=== PATIENT | female | born 1945 | race Caucasian/White ===

== ENCOUNTER 2017-05-07 20:58 | Inpatient (IN) | payer MEDICARE, MEDICAID ==
[~2017-05-07] VITALS: Ht 165.1 cm; Wt 79.8 kg
[~2017-05-07 20:58] MED LIST: ACET-2154 PO; APIX5TAB PO; ATEN25TA PO; BLOO-360 IN; CALC-903 PO; CARB-110 PO; CHOL400T58 PO; DOCU100T2 PO; GEMF600T3 PO; GLUC1VIA4 IJ; GLYB2.5T4 PO; LISI-603 PO; MAG30ORA PO; MAGN400O6 PO; OMEP20CA10 PO; SITA100T PO; VALS80TA2 PO
--- NOTE | 2017-05-07 21:02 | NUR ---
PATIENT BROUGHT IN BY PRIVATE AMBULANCE FROM [facility] ON 5150 HOLD FOR GD, PT WAS TAKING THE COVERS OFF OF THE ELECTRICAL OUTLETS, ARGUING WITH STAFF AND REFUSING TO TAKE MEDICATIONS. PT IS ALERT, ORIETNED X 2, NO RESP DISTRESS NOTED OR REPORTED UPON ASSESSMENT, SKIN IS INTACT, PT IS AMBULATORY, CONTINENT OF BOWEL AND BLADDER... MD AT BEDSIDE...
[2017-05-07 21:34] LABS: BASOPHILS # (AUTO) 0.1 K/uL (0.0-8.0); BASOPHILS % (AUTO) 0.9 % (0.0-2.0); EOSINOPHILS # (AUTO) 0.2 K/uL (0.0-0.7); EOSINOPHILS % (AUTO) 2.7 % (0.0-7.0); HEMATOCRIT 41.2 % (37-47); HEMOGLOBIN 13.5 G/DL (12.0-16.0); LYMPHOCYTES # (AUTO) 2.1 K/UL (0.8-4.8); LYMPHOCYTES % (AUTO) 24.2 % (20.5-51.5); MEAN CORPUSCULAR HEMOGLOBIN 28.2 UUG (27.0-31.0); MEAN CORPUSCULAR HGB CONC 33 g/dL (32.0-37.0); MEAN CORPUSCULAR VOLUME 86.1 FL (81.0-99.0); MONOCYTES # (AUTO) 0.8 K/UL (0.1-1.30); MONOCYTES % (AUTO) 9.3 % (0.0-11.0); NEUTROPHILS # (AUTO) 5.6 K/UL (1.8-8.9); NEUTROPHILS % (AUTO) 62.9 % (38.5-71.5); PLATELET COUNT (AUTO) 196 K/UL (150-450); RED BLOOD CELL COUNT(AUTO) 4.79 MIL/UL (4.2-5.4); WHITE BLOOD COUNT (AUTO) 8.8 K/UL (4.0-11.2)
[2017-05-07 21:45] LABS: ALANINE AMINOTRANSFERASE 11 U/L (14-59); ALKALINE PHOSPHATASE 90 U/L (50-136); ASPARTATE AMINOTRANSFERASE 18 U/L (15-37); BILIRUBIN,DIRECT 0.1 mg/dL (0.0-0.2); BILIRUBIN,TOTAL 0.4 mg/dL (0.2-1.0); CARBON DIOXIDE 27 mmol/L (21-32); CHLORIDE 106 mmol/L (98-107); CREATININE 0.9 mg/dL (0.6-1.3); GLUCOSE 131 mg/dL (74-106); POTASSIUM 3.9 mmol/L (3.5-5.1); TOTAL PROTEIN, SERUM 7.4 g/dL (6.4-8.2); UREA NITROGEN, BLOOD 20 mg/dL (7-18)
[2017-05-07 21:53] LABS: THYROID STIMULATING HORMONE 2.666 mIU/mL (0.358-3.740)
[2017-05-07] MEDS ORDERED: QUET50TA PO (21:55)
[2017-05-07] MEDS ORDERED: PANT40TA4 PO (21:55)
[2017-05-07] MEDS ORDERED: FLUO20CA36 PO (21:55)
[2017-05-07] MEDS ORDERED: FLUV25TA PO (21:55)
[2017-05-07] MEDS ORDERED: LORA1TAB PO (21:55)
[2017-05-07] MEDS ORDERED: RIVA1.5C7 PO (21:55)
[2017-05-07 21:59] LABS: ETHANOL < 3 MG/DL (0-0)
[2017-05-07 22:54] LABS: *BILIRUBIN,URIN NEGATIVE (NEGATIVE); *BLOOD, URINE Trace-intact (NEGATIVE); *CLARITY,URINE CLEAR (CLEAR); *COLOR,URINE YELLOW (YELLOW); *KETONES,URINE NEGATIVE (NEGATIVE); *PROTEIN,URINE NEGATIVE (NEGATIVE); *UROBILINOGEN,URINE 0.2 E.U./dl (NORMAL); LEUKOCYTE ESTERASE ,URINE 2+ (NEGATIVE); NITRITE, URINE NEGATIVE (NEGATIVE); PH,URINE 5.5 (5.0-8.0); UGLUCOSE NEGATIVE (NEGATIVE)
[2017-05-07 23:00] LABS: BACTERIA,URINE FEW /HPF (NONE SEEN); RBC,URINE 0-3 /HPF (0-3); SQUAMOUS EPITHELIAL CELL,UR FEW /HPF (NONE SEEN)
[2017-05-07 23:10] LABS: *AMPHETAMINE, URINE NEGATIVE (NEGATIVE); *BARBITURATE, URINE NEGATIVE (NEGATIVE); *CANNABINOID, URINE NEGATIVE (NEGATIVE); *COCCAINE, URINE NEGATIVE (NEGATIVE); *PHENCYCLIDINE SCREEN,URINE NEGATIVE (NEGATIVE)
[2017-05-07] MEDS ORDERED: CEPHALEXIN MONOHYDRATE 250 MG CAPSULE PO ONE (23:15)
[2017-05-07 23:27] LABS: *OPIATE, URINE NEGATIVE (NEGATIVE)
[2017-05-07] MEDS ORDERED: CEPHALEXIN MONOHYDRATE 250 MG CAPSULE ONE (23:27)
--- NOTE | 2017-05-08 00:30 | NUR ---
Pt. admitted to MHU , under care of Dr. Munoz/ dami, Belongs List completed, pt is alert, oriented x 2, no resp distress noted or reported upon transfer assessment... pt transferred via wheelchair
[2017-05-08] MEDS: LORAZEPAM 1 MG TABLET PO PRN ×2 (01:10→21:12)
[2017-05-08] MEDS ORDERED: TEMAZEPAM 7.5 MG CAPSULE PO PRN (01:15)
[2017-05-08] MEDS ORDERED: MAGNESIUM HYDROXIDE 30 ML LIQUID UDC PO PRN (01:15)
[2017-05-08] MEDS ORDERED: ACETAMINOPHEN 325 MG TABLET PO PRN ×2 (01:15→14:15)
[2017-05-08] MEDS ORDERED: MAG HYDROX/AL HYDROX/SIMETH 30 ML LIQUID UDC PO PRN (01:15)
[2017-05-08 01:19] VITALS: BP 120/82
[2017-05-08] MEDS ORDERED: LORAZEPAM 1 MG TABLET ONE (01:20)
--- NOTE | 2017-05-08 02:18 | NUR ---
GPS: Admitted to unit earlier a 71 yr.old female under the care of / in stable condition. Pt.is on a 72 hour hold for GD. Pt.attempted to remove electrical outlet covers,and has been agitated and screaming at her board and care. Pt.was anxious,hyperverbal during admission process. Belongings list completed. Skin assessment done by staff after some persuasion from staff. Safety emphasized. Re-directed and re-assured prn. Monitored closely.
[2017-05-08 07:30] VITALS: BP 130/72
[2017-05-08] MEDS: BLOOD SUGAR DIAGNOSTIC 1 EACH STRIP VI SCH ×3 (14:15→21:39)
[2017-05-08] MEDS ORDERED: DEXTROSE 50% 50 ML DISP.SYRIN IV PRN (14:15)
[2017-05-08 16:00] VITALS: BP 130/83
[2017-05-08] MEDS: LINAGLIPTIN 5 MG TABLET PO SCH (16:00)
[2017-05-08] MEDS: SULFAMETH/TRIMETH 800/160 MG TABLET PO SCH ×2 (16:09→21:12)
[2017-05-08] MEDS: PANTOPRAZOLE SODIUM 40 MG TABLET.DR PO SCH (16:10)
[2017-05-08] MEDS ORDERED: APIXABAN 5 MG TABLET PO ONE (17:00)
[2017-05-08] MEDS ORDERED: CARB1TAB21 PO (17:11)
[2017-05-08] MEDS: DOCUSATE SODIUM 100 MG CAPSULE PO SCH (17:35)
[2017-05-08] MEDS: glyBURIDE 2.5 MG TABLET PO SCH (17:36)
[2017-05-08] MEDS: CARBIDOPA/LEVODOPA 25-100MG TABLET PO SCH (17:36)
[2017-05-08] MEDS: INSULIN REGULAR, HUMAN 300 UNIT/3 ML VIAL SQ PRN (17:59)
[2017-05-08 20:17] VITALS: BP 116/77
[2017-05-08] MEDS: QUETIAPINE FUMARATE 25 MG TABLET PO SCH (21:00)
[2017-05-09] MEDS: BLOOD SUGAR DIAGNOSTIC 1 EACH STRIP VI SCH ×4 (07:13→21:03)
[2017-05-09] MEDS: PANTOPRAZOLE SODIUM 40 MG TABLET.DR PO SCH (07:21)
[2017-05-09] MEDS: glyBURIDE 2.5 MG TABLET PO SCH ×2 (07:21→17:14)
[2017-05-09 07:30] VITALS: BP 131/70
[2017-05-09] MEDS: RIVASTIGMINE TARTRATE 3 MG CAPSULE PO SCH ×2 (08:35→17:14)
[2017-05-09] MEDS: CARBIDOPA/LEVODOPA 25-100MG TABLET PO SCH ×3 (08:36→17:14)
[2017-05-09] MEDS: DOCUSATE SODIUM 100 MG CAPSULE PO SCH ×2 (08:36→17:14)
[2017-05-09] MEDS: SULFAMETH/TRIMETH 800/160 MG TABLET PO SCH ×2 (08:36→20:49)
[2017-05-09] MEDS: CALCIUM CARBONATE 600 MG TABLET PO SCH (08:36)
[2017-05-09] MEDS: CHOLECALCIFEROL 400 UNITS TABLET PO SCH (08:36)
[2017-05-09] MEDS: LINAGLIPTIN 5 MG TABLET PO SCH (08:41)
[2017-05-09] MEDS: APIXABAN 5 MG TABLET PO SCH ×2 (08:45→17:14)
[2017-05-09] MEDS: LISINOPRIL 20 MG TABLET PO SCH (09:00)
[2017-05-09] MEDS ORDERED: FLUOXETINE HCL 20 MG CAPSULE PO SCH (09:00)
[2017-05-09] MEDS: VALSARTAN 80 MG TABLET PO SCH (09:00)
[2017-05-09] MEDS ORDERED: Medication Not On Formulary EA (Sitagliptin Phosphate (Januvia) 100 MG) PO SCH (09:00)
[2017-05-09] MEDS: ATENOLOL 25 MG TABLET PO SCH (09:00)
--- NOTE | 2017-05-09 09:00 | NUR ---
GPS./RN- BLOOD PRESSURE MEDS HELD BASED ON FACILITY PARAMETERS, HOLD IF SBP BELOW 100 AND/OR DBP BELOW 60 AND/OR HR BELOW 60. PATIENT WITH LOW HEART RATE.
--- NOTE | 2017-05-09 09:17 | NUR ---
Initial discharge instructions: The patient resides at [facility] ([facility]) [[address] , [place] [address] ]. VAUGHN spoke with pt regarding potential discharge plan. SW attempted to call the patient's brother [Cristian Alves, ] about the discharge plan however his phone was busy. SW will attempt to call back at a later time. VAUGHN called [facility] and spoke with Phu in admissions who stated that they will be accepting the patient back upon DC. VAUGHN will speak to MD, patient, and family regarding most appropriate discharge plan. SW will form a safe and proper discharge plan.
[2017-05-09 16:00] VITALS: BP 137/81
[2017-05-09 20:57] VITALS: BP 134/82
[2017-05-10] MEDS: BLOOD SUGAR DIAGNOSTIC 1 EACH STRIP VI SCH ×4 (06:43→20:27)
[2017-05-10] MEDS: PANTOPRAZOLE SODIUM 40 MG TABLET.DR PO SCH (06:51)
[2017-05-10 07:30] VITALS: BP 127/83
[2017-05-10] MEDS: SULFAMETH/TRIMETH 800/160 MG TABLET PO SCH ×2 (08:36→20:21)
[2017-05-10] MEDS: DOCUSATE SODIUM 100 MG CAPSULE PO SCH ×2 (08:36→16:45)
[2017-05-10] MEDS: glyBURIDE 2.5 MG TABLET PO SCH ×2 (08:36→16:45)
[2017-05-10] MEDS: CARBIDOPA/LEVODOPA 25-100MG TABLET PO SCH ×3 (08:36→16:45)
[2017-05-10] MEDS: RIVASTIGMINE TARTRATE 3 MG CAPSULE PO SCH ×2 (08:36→16:45)
[2017-05-10] MEDS: CALCIUM CARBONATE 600 MG TABLET PO SCH (08:36)
[2017-05-10] MEDS: CHOLECALCIFEROL 400 UNITS TABLET PO SCH (08:36)
[2017-05-10] MEDS: LINAGLIPTIN 5 MG TABLET PO SCH (08:37)
[2017-05-10] MEDS: APIXABAN 5 MG TABLET PO SCH ×2 (08:37→16:45)
[2017-05-10] MEDS: QUETIAPINE FUMARATE 25 MG TABLET PO SCH ×3 (08:37→20:21)
[2017-05-10] MEDS: ATENOLOL 25 MG TABLET PO SCH (08:38)
[2017-05-10] MEDS: LISINOPRIL 20 MG TABLET PO SCH (08:38)
[2017-05-10] MEDS: VALSARTAN 80 MG TABLET PO SCH (08:38)
[2017-05-10 15:47] VITALS: BP 124/69
[2017-05-10] MEDS: FLUVOXAMINE MALEATE 25 MG TABLET PO SCH (19:32)
[2017-05-10] MEDS: INSULIN REGULAR, HUMAN 300 UNIT/3 ML VIAL SQ PRN (20:28)
[2017-05-10 20:54] VITALS: BP 114/72
[2017-05-11] MEDS: BLOOD SUGAR DIAGNOSTIC 1 EACH STRIP VI SCH ×4 (06:32→20:51)
[2017-05-11] MEDS: PANTOPRAZOLE SODIUM 40 MG TABLET.DR PO SCH (06:35)
[2017-05-11 07:30] VITALS: BP 123/77
[2017-05-11] MEDS: SULFAMETH/TRIMETH 800/160 MG TABLET PO SCH ×2 (08:33→20:12)
[2017-05-11] MEDS: CHOLECALCIFEROL 400 UNITS TABLET PO SCH (08:33)
[2017-05-11] MEDS: CALCIUM CARBONATE 600 MG TABLET PO SCH (08:33)
[2017-05-11] MEDS: QUETIAPINE FUMARATE 25 MG TABLET PO SCH ×3 (08:33→20:12)
[2017-05-11] MEDS: FLUVOXAMINE MALEATE 25 MG TABLET PO SCH ×3 (08:33→17:03)
[2017-05-11] MEDS: LINAGLIPTIN 5 MG TABLET PO SCH (08:33)
[2017-05-11] MEDS: DOCUSATE SODIUM 100 MG CAPSULE PO SCH ×2 (08:33→17:04)
[2017-05-11] MEDS: RIVASTIGMINE TARTRATE 3 MG CAPSULE PO SCH ×2 (08:33→17:04)
[2017-05-11] MEDS: CARBIDOPA/LEVODOPA 25-100MG TABLET PO SCH ×3 (08:34→17:04)
[2017-05-11] MEDS: APIXABAN 5 MG TABLET PO SCH ×2 (08:34→17:05)
[2017-05-11] MEDS: glyBURIDE 2.5 MG TABLET PO SCH ×2 (08:35→17:04)
[2017-05-11] MEDS: VALSARTAN 80 MG TABLET PO SCH (08:35)
[2017-05-11] MEDS: LISINOPRIL 20 MG TABLET PO SCH (08:35)
[2017-05-11] MEDS: ATENOLOL 25 MG TABLET PO SCH (08:35)
[2017-05-11 16:00] VITALS: BP 116/69
[2017-05-11 21:36] VITALS: BP 111/62
[2017-05-12] MEDS: PANTOPRAZOLE SODIUM 40 MG TABLET.DR PO SCH (06:34)
[2017-05-12] MEDS: BLOOD SUGAR DIAGNOSTIC 1 EACH STRIP VI SCH ×3 (06:35→16:19)
[2017-05-12 07:30] VITALS: BP 137/73
[2017-05-12] MEDS: CALCIUM CARBONATE 600 MG TABLET PO SCH (08:35)
[2017-05-12] MEDS: RIVASTIGMINE TARTRATE 3 MG CAPSULE PO SCH ×2 (08:35→16:18)
[2017-05-12] MEDS: CHOLECALCIFEROL 400 UNITS TABLET PO SCH (08:35)
[2017-05-12] MEDS: SULFAMETH/TRIMETH 800/160 MG TABLET PO SCH ×2 (08:35→21:42)
[2017-05-12] MEDS: CARBIDOPA/LEVODOPA 25-100MG TABLET PO SCH ×3 (08:35→16:18)
[2017-05-12] MEDS: FLUVOXAMINE MALEATE 25 MG TABLET PO SCH ×3 (08:36→16:18)
[2017-05-12] MEDS: DOCUSATE SODIUM 100 MG CAPSULE PO SCH ×2 (08:36→16:18)
[2017-05-12] MEDS: APIXABAN 5 MG TABLET PO SCH ×2 (08:36→16:18)
[2017-05-12] MEDS: LINAGLIPTIN 5 MG TABLET PO SCH (08:36)
[2017-05-12] MEDS: QUETIAPINE FUMARATE 25 MG TABLET PO SCH ×3 (08:36→21:41)
[2017-05-12] MEDS: glyBURIDE 2.5 MG TABLET PO SCH ×2 (08:36→16:18)
[2017-05-12] MEDS: VALSARTAN 80 MG TABLET PO SCH (08:37)
[2017-05-12] MEDS: ATENOLOL 25 MG TABLET PO SCH (08:37)
[2017-05-12] MEDS: LISINOPRIL 20 MG TABLET PO SCH (08:37)
[2017-05-12] MEDS: LORAZEPAM 1 MG TABLET PO PRN (16:18)
--- NOTE | 2017-05-12 16:18 | NUR ---
GPS: Nursing Notes: Severe Agitation: Violent outburst without provocation, taking her roommate cloth, hoarding trash in her draws, aggressive behavior by scratching staff, kicking staff, poor anger management, psychotic behavior, believes that we are stealing from her, unable to be redirected, restless, setting limits, but continue to be aggressive by scratching and kicking staff, covering psychiatrist, Dr. Hussein pichardo, continue to monitor patient, continue with treatment plan.
[2017-05-12] MEDS ORDERED: LORAZEPAM 2 MG/1 ML VIAL IM ONE (16:30)
[2017-05-12] MEDS ORDERED: diphenhydrAMINE 50 MG/1 ML VIAL IM ONE (16:30)
[2017-05-12] MEDS ORDERED: HALOPERIDOL LACTATE 5 MG/1 ML VIAL IM ONE (16:30)
--- NOTE | 2017-05-12 16:48 | NUR ---
GPS: Nursing Notes: Chemical Restraint: Patient is restless, poor anger management, aggressive behavior, striking and kicking staff, violent outburst without provocation, psychotic behavior, taking her roommate cloth and wearing them, believes that we are trying to steal from her, believes is her cloth, shouting, screaming, unable to be redirected, per Dr. Savage, medicated with Haldol 2.5mg IM, Ativan 1mg IM, and Benadryl 25mg IM STAT, refusing V/S at this time, continue with treatment plan.
--- NOTE | 2017-05-12 17:20 | NUR ---
GPS: Nursing Notes: Reassessment of Chemical Restraint: Patient is quiet, calmed, isolative in her room, no interactions with peer or staff, poor eyes contact when talking to staff, B/P=108/62, P=64, R=18, medication IM STAT was effective, patient stopped striking out at staff, patient stopped hoarding trash, continue to monitor for safety, continue with treatment plan.
[2017-05-12 17:56] VITALS: BP 119/72
[2017-05-12 20:53] VITALS: BP 107/66
[2017-05-13] MEDS: BLOOD SUGAR DIAGNOSTIC 1 EACH STRIP VI SCH (06:31)
[2017-05-13] MEDS: PANTOPRAZOLE SODIUM 40 MG TABLET.DR PO SCH (06:31)
[2017-05-13] MEDS ORDERED: INSULIN REGULAR, HUMAN 300 UNIT/3 ML VIAL SQ PRN (07:30)
[2017-05-13] MEDS: CARBIDOPA/LEVODOPA 25-100MG TABLET PO SCH ×3 (08:33→16:45)
[2017-05-13] MEDS: APIXABAN 5 MG TABLET PO SCH ×2 (08:33→16:46)
[2017-05-13] MEDS: LINAGLIPTIN 5 MG TABLET PO SCH (08:33)
[2017-05-13] MEDS: glyBURIDE 2.5 MG TABLET PO SCH ×2 (08:33→16:45)
[2017-05-13] MEDS: FLUVOXAMINE MALEATE 25 MG TABLET PO SCH ×2 (08:33→12:36)
[2017-05-13] MEDS: QUETIAPINE FUMARATE 25 MG TABLET PO SCH ×2 (08:33→12:36)
[2017-05-13] MEDS: SULFAMETH/TRIMETH 800/160 MG TABLET PO SCH ×2 (08:33→20:08)
[2017-05-13] MEDS: DOCUSATE SODIUM 100 MG CAPSULE PO SCH ×2 (08:33→16:45)
[2017-05-13] MEDS: RIVASTIGMINE TARTRATE 3 MG CAPSULE PO SCH ×2 (08:33→16:45)
[2017-05-13] MEDS: CHOLECALCIFEROL 400 UNITS TABLET PO SCH (08:34)
[2017-05-13] MEDS: VALSARTAN 80 MG TABLET PO SCH (08:34)
[2017-05-13] MEDS: ATENOLOL 25 MG TABLET PO SCH (08:34)
[2017-05-13] MEDS: CALCIUM CARBONATE 600 MG TABLET PO SCH (08:34)
[2017-05-13] MEDS: LISINOPRIL 20 MG TABLET PO SCH (08:35)
[2017-05-13] MEDS ORDERED: QUETIAPINE FUMARATE 25 MG TABLET PO SCH (13:00)
[2017-05-13 15:29] VITALS: BP 105/62
[2017-05-13] MEDS: FLUVOXAMINE MALEATE 50 MG TABLET PO SCH (20:08)
[2017-05-13 20:13] VITALS: BP 105/70
[2017-05-14] MEDS: BLOOD SUGAR DIAGNOSTIC 1 EACH STRIP VI SCH (06:33)
[2017-05-14] MEDS: PANTOPRAZOLE SODIUM 40 MG TABLET.DR PO SCH (06:33)
[2017-05-14 07:30] VITALS: BP 119/74
[2017-05-14] MEDS: QUETIAPINE FUMARATE 25 MG TABLET PO SCH ×2 (08:45→12:55)
[2017-05-14] MEDS: FLUVOXAMINE MALEATE 25 MG TABLET PO SCH ×2 (08:45→12:55)
[2017-05-14] MEDS: DOCUSATE SODIUM 100 MG CAPSULE PO SCH ×2 (08:45→16:30)
[2017-05-14] MEDS: CALCIUM CARBONATE 600 MG TABLET PO SCH (08:45)
[2017-05-14] MEDS: RIVASTIGMINE TARTRATE 3 MG CAPSULE PO SCH ×2 (08:45→16:30)
[2017-05-14] MEDS: CHOLECALCIFEROL 400 UNITS TABLET PO SCH (08:45)
[2017-05-14] MEDS: ATENOLOL 25 MG TABLET PO SCH (08:46)
[2017-05-14] MEDS: glyBURIDE 2.5 MG TABLET PO SCH ×2 (08:46→16:30)
[2017-05-14] MEDS: LINAGLIPTIN 5 MG TABLET PO SCH (08:46)
[2017-05-14] MEDS: SULFAMETH/TRIMETH 800/160 MG TABLET PO SCH ×2 (08:46→20:13)
[2017-05-14] MEDS: APIXABAN 5 MG TABLET PO SCH ×2 (08:46→16:31)
[2017-05-14] MEDS: CARBIDOPA/LEVODOPA 25-100MG TABLET PO SCH ×3 (08:47→16:30)
[2017-05-14] MEDS: LISINOPRIL 20 MG TABLET PO SCH (08:47)
[2017-05-14] MEDS: VALSARTAN 80 MG TABLET PO SCH (08:47)
[2017-05-14 15:44] VITALS: BP 99/64
[2017-05-14 20:00] VITALS: BP 123/75
[2017-05-14] MEDS: FLUVOXAMINE MALEATE 50 MG TABLET PO SCH (20:13)
[2017-05-15] MEDS: LORAZEPAM 1 MG TABLET PO PRN (06:00)
[2017-05-15] MEDS: PANTOPRAZOLE SODIUM 40 MG TABLET.DR PO SCH (06:02)
[2017-05-15] MEDS: BLOOD SUGAR DIAGNOSTIC 1 EACH STRIP VI SCH (06:32)
[2017-05-15 07:30] VITALS: BP 152/97
[2017-05-15 08:08] LABS: BASOPHILS # (AUTO) 0.1 K/uL (0.0-8.0); BASOPHILS % (AUTO) 1.2 % (0.0-2.0); EOSINOPHILS # (AUTO) 0.1 K/uL (0.0-0.7); EOSINOPHILS % (AUTO) 0.7 % (0.0-7.0); HEMOGLOBIN 14.9 G/DL (12.0-16.0); LYMPHOCYTES # (AUTO) 1.3 K/UL (0.8-4.8); LYMPHOCYTES % (AUTO) 18.2 % (20.5-51.5); MEAN CORPUSCULAR HEMOGLOBIN 28.6 UUG (27.0-31.0); MEAN CORPUSCULAR HGB CONC 33 g/dL (32.0-37.0); MEAN CORPUSCULAR VOLUME 86.3 FL (81.0-99.0); MONOCYTES # (AUTO) 0.5 K/UL (0.1-1.30); MONOCYTES % (AUTO) 6.2 % (0.0-11.0); NEUTROPHILS # (AUTO) 5.4 K/UL (1.8-8.9); NEUTROPHILS % (AUTO) 73.7 % (38.5-71.5); PLATELET COUNT (AUTO) 211 K/UL (150-450); RED BLOOD CELL COUNT(AUTO) 5.22 MIL/UL (4.2-5.4); WHITE BLOOD COUNT (AUTO) 7.4 K/UL (4.0-11.2)
[2017-05-15 09:09] LABS: ALANINE AMINOTRANSFERASE 27 U/L (14-59); ALKALINE PHOSPHATASE 94 U/L (50-136); ASPARTATE AMINOTRANSFERASE 28 U/L (15-37); BILIRUBIN,TOTAL 0.4 mg/dL (0.2-1.0); CARBON DIOXIDE 25 mmol/L (21-32); CHLORIDE 103 mmol/L (98-107); CHOLESTEROL 213 mg/dL (<200); CREATININE 1.1 mg/dL (0.6-1.3); GLUCOSE 130 mg/dL (74-106); HDL CHOLESTEROL 44 mg/dL (40-60); PHOSPHOROUS 3.9 mg/dL (2.5-4.9); POTASSIUM 4.3 mmol/L (3.5-5.1); TOTAL PROTEIN, SERUM 8.3 g/dL (6.4-8.2); TRIGLYCERIDES 138 MG/DL (30-150); UREA NITROGEN, BLOOD 21 mg/dL (7-18)
[2017-05-15] MEDS: CHOLECALCIFEROL 400 UNITS TABLET PO SCH (09:37)
[2017-05-15] MEDS: ATENOLOL 25 MG TABLET PO SCH (09:37)
[2017-05-15] MEDS: DOCUSATE SODIUM 100 MG CAPSULE PO SCH ×2 (09:37→16:53)
[2017-05-15] MEDS: CALCIUM CARBONATE 600 MG TABLET PO SCH (09:37)
[2017-05-15] MEDS: CARBIDOPA/LEVODOPA 25-100MG TABLET PO SCH ×3 (09:37→16:53)
[2017-05-15] MEDS: FLUVOXAMINE MALEATE 25 MG TABLET PO SCH ×2 (09:37→13:14)
[2017-05-15] MEDS: glyBURIDE 2.5 MG TABLET PO SCH ×2 (09:37→09:55)
[2017-05-15] MEDS: LINAGLIPTIN 5 MG TABLET PO SCH (09:54)
[2017-05-15] MEDS: VALSARTAN 80 MG TABLET PO SCH (09:55)
[2017-05-15] MEDS: LISINOPRIL 20 MG TABLET PO SCH (09:56)
[2017-05-15] MEDS: APIXABAN 5 MG TABLET PO SCH ×2 (09:59→16:53)
[2017-05-15] MEDS: RIVASTIGMINE TARTRATE 3 MG CAPSULE PO SCH ×2 (09:59→16:53)
[2017-05-15] MEDS: SULFAMETH/TRIMETH 800/160 MG TABLET PO SCH (09:59)
[2017-05-15] MEDS: QUETIAPINE FUMARATE 25 MG TABLET PO SCH ×2 (09:59→13:15)
[2017-05-15 16:00] VITALS: BP 106/67
[2017-05-15] MEDS: FLUVOXAMINE MALEATE 50 MG TABLET PO SCH (20:35)
[2017-05-15] MEDS: ATORVASTATIN 10 MG TABLET PO SCH (20:36)
[2017-05-15 20:49] VITALS: BP 112/68
--- NOTE | 2017-05-15 21:39 | NUR ---
PATIENT RECEIVED IN BED AWAKE. PATIENT ALERT/ORIENTED X2 WITH FLAT AFFECT NOTED. PATIENT IN NO APPARENT DISTRESS WILL CONTINUE TO MONITOR AND REDIRECT. NO AGGRESSIVE OR COMBATIVE BEHAVIOR NOTED WILL CONTINUE TO MONITOR. PATIENT COMPLAINT WITH MEDICATION. PATIENT DENIES PAIN AT THIS TIME, WILL CONTINUE TO MONITOR.
[2017-05-16] MEDS: PANTOPRAZOLE SODIUM 40 MG TABLET.DR PO SCH (06:17)
[2017-05-16] MEDS: BLOOD SUGAR DIAGNOSTIC 1 EACH STRIP VI SCH (06:30)
[2017-05-16 07:30] VITALS: BP 104/55
[2017-05-16] MEDS: glyBURIDE 2.5 MG TABLET PO SCH ×2 (08:27→18:16)
[2017-05-16] MEDS: CARBIDOPA/LEVODOPA 25-100MG TABLET PO SCH ×3 (08:27→18:16)
[2017-05-16] MEDS: DOCUSATE SODIUM 100 MG CAPSULE PO SCH ×2 (08:27→18:16)
[2017-05-16] MEDS: CHOLECALCIFEROL 400 UNITS TABLET PO SCH (08:27)
[2017-05-16] MEDS: CALCIUM CARBONATE 600 MG TABLET PO SCH (08:27)
[2017-05-16] MEDS: APIXABAN 5 MG TABLET PO SCH ×2 (08:28→18:19)
[2017-05-16] MEDS: LINAGLIPTIN 5 MG TABLET PO SCH (08:28)
[2017-05-16] MEDS: QUETIAPINE FUMARATE 25 MG TABLET PO SCH ×2 (08:31→12:35)
[2017-05-16] MEDS: FLUVOXAMINE MALEATE 25 MG TABLET PO SCH ×2 (08:31→12:34)
[2017-05-16] MEDS: RIVASTIGMINE TARTRATE 3 MG CAPSULE PO SCH ×2 (08:31→18:17)
[2017-05-16] MEDS: ATENOLOL 25 MG TABLET PO SCH (09:00)
[2017-05-16] MEDS: VALSARTAN 80 MG TABLET PO SCH (09:00)
[2017-05-16] MEDS: LISINOPRIL 20 MG TABLET PO SCH (09:00)
--- NOTE | 2017-05-16 12:35 | NUR ---
Luvox 25 mg tablet and quetiapine fumarate 50 mg held due to B/P 75/41 Hr-90, patient asymptomatic, denies dizziness. Advice patient to remain sitting and lunch served. WE'll recheck B/P.
[2017-05-16 16:05] VITALS: BP 90/58
[2017-05-16 19:30] VITALS: BP 109/61
[2017-05-16] MEDS: ATORVASTATIN 10 MG TABLET PO SCH (20:39)
[2017-05-16] MEDS: FLUVOXAMINE MALEATE 50 MG TABLET PO SCH (20:39)
[2017-05-17] MEDS: PANTOPRAZOLE SODIUM 40 MG TABLET.DR PO SCH (06:17)
[2017-05-17] MEDS: BLOOD SUGAR DIAGNOSTIC 1 EACH STRIP VI SCH (06:22)
--- NOTE | 2017-05-17 06:33 | NUR ---
GPS:PATIENT REMAIN CALM AND COOPERATIVE. PATIENT ALERT/ORIENTED X2 WITH FLAT AFFECT NOTED. NO AGGRESSIVE OR COMBATIVE BEHAVIOR NOTED WILL CONTINUE TO MONITOR. PATIENT COMPLAINT WITH MEDICATION. SLEPT 9 HRS THROUGH THE NIGHT. PATIENT DENIES PAIN AT THIS TIME, WILL CONTINUE TO MONITOR.
[2017-05-17 07:30] VITALS: BP 109/65
[2017-05-17] MEDS: QUETIAPINE FUMARATE 25 MG TABLET PO SCH ×2 (08:52→13:14)
[2017-05-17] MEDS: RIVASTIGMINE TARTRATE 3 MG CAPSULE PO SCH ×2 (08:52→17:51)
[2017-05-17] MEDS: FLUVOXAMINE MALEATE 25 MG TABLET PO SCH ×2 (08:52→13:13)
[2017-05-17] MEDS: glyBURIDE 2.5 MG TABLET PO SCH ×2 (08:52→17:51)
[2017-05-17] MEDS: CARBIDOPA/LEVODOPA 25-100MG TABLET PO SCH ×3 (08:52→17:51)
[2017-05-17] MEDS: APIXABAN 5 MG TABLET PO SCH ×2 (08:53→17:57)
[2017-05-17] MEDS: CHOLECALCIFEROL 1,000 UNIT TABLET PO SCH (08:53)
[2017-05-17] MEDS: DOCUSATE SODIUM 100 MG CAPSULE PO SCH ×2 (08:53→17:51)
[2017-05-17] MEDS: CALCIUM CARBONATE 600 MG TABLET PO SCH (08:53)
[2017-05-17] MEDS: LINAGLIPTIN 5 MG TABLET PO SCH (08:54)
[2017-05-17] MEDS: ATENOLOL 25 MG TABLET PO SCH (10:30)
[2017-05-17 17:05] VITALS: BP 105/55
[2017-05-17 19:50] VITALS: BP 116/70
[2017-05-17] MEDS: FLUVOXAMINE MALEATE 50 MG TABLET PO SCH (20:13)
[2017-05-17] MEDS: ATORVASTATIN 10 MG TABLET PO SCH (20:13)
--- NOTE | 2017-05-18 06:15 | NUR ---
patient was calm and cooperative. Compliant with medication. No noted or reported behavioral problems during the shift. patient slept for about 4hrs. we will continue to monitor Addendum: 05/18/17 at 0620 by LALA QUEVEDO RN patient slept for 5.5 hrs.
[2017-05-18] MEDS: PANTOPRAZOLE SODIUM 40 MG TABLET.DR PO SCH (06:46)
[2017-05-18] MEDS: BLOOD SUGAR DIAGNOSTIC 1 EACH STRIP VI SCH (06:50)
[2017-05-18 07:50] VITALS: BP 110/66
[2017-05-18] MEDS: CALCIUM CARBONATE 600 MG TABLET PO SCH (08:45)
[2017-05-18] MEDS: QUETIAPINE FUMARATE 25 MG TABLET PO SCH ×2 (08:45→13:15)
[2017-05-18] MEDS: CARBIDOPA/LEVODOPA 25-100MG TABLET PO SCH ×3 (08:45→18:05)
[2017-05-18] MEDS: CHOLECALCIFEROL 1,000 UNIT TABLET PO SCH (08:45)
[2017-05-18] MEDS: FLUVOXAMINE MALEATE 25 MG TABLET PO SCH ×2 (08:45→13:15)
[2017-05-18] MEDS: DOCUSATE SODIUM 100 MG CAPSULE PO SCH ×2 (08:47→18:06)
[2017-05-18] MEDS: RIVASTIGMINE TARTRATE 3 MG CAPSULE PO SCH ×2 (08:47→18:05)
[2017-05-18] MEDS: ATENOLOL 25 MG TABLET PO SCH (08:47)
[2017-05-18] MEDS: glyBURIDE 2.5 MG TABLET PO SCH ×2 (08:47→18:05)
[2017-05-18] MEDS: LINAGLIPTIN 5 MG TABLET PO SCH (08:48)
[2017-05-18] MEDS: APIXABAN 5 MG TABLET PO SCH ×2 (08:48→18:07)
[2017-05-18 20:11] VITALS: BP 113/67
[2017-05-18] MEDS: ATORVASTATIN 10 MG TABLET PO SCH (20:20)
[2017-05-18] MEDS: FLUVOXAMINE MALEATE 50 MG TABLET PO SCH (20:20)
[2017-05-19] MEDS: BLOOD SUGAR DIAGNOSTIC 1 EACH STRIP VI SCH (06:47)
[2017-05-19] MEDS: PANTOPRAZOLE SODIUM 40 MG TABLET.DR PO SCH (06:47)
[2017-05-19 07:30] VITALS: BP 137/72
[2017-05-19 08:11] LABS: BASOPHILS % (AUTO) 0.8 % (0.0-2.0); EOSINOPHILS # (AUTO) 0.2 K/uL (0.0-0.7); EOSINOPHILS % (AUTO) 4.1 % (0.0-7.0); HEMATOCRIT 40.6 % (37-47); HEMOGLOBIN 13.5 G/DL (12.0-16.0); LYMPHOCYTES # (AUTO) 1.5 K/UL (0.8-4.8); LYMPHOCYTES % (AUTO) 25.9 % (20.5-51.5); MEAN CORPUSCULAR HEMOGLOBIN 28.4 UUG (27.0-31.0); MEAN CORPUSCULAR HGB CONC 33 g/dL (32.0-37.0); MEAN CORPUSCULAR VOLUME 85.7 FL (81.0-99.0); MONOCYTES # (AUTO) 0.6 K/UL (0.1-1.30); MONOCYTES % (AUTO) 10.4 % (0.0-11.0); NEUTROPHILS # (AUTO) 3.5 K/UL (1.8-8.9); NEUTROPHILS % (AUTO) 58.8 % (38.5-71.5); PLATELET COUNT (AUTO) 196 K/UL (150-450); RED BLOOD CELL COUNT(AUTO) 4.74 MIL/UL (4.2-5.4); WHITE BLOOD COUNT (AUTO) 5.8 K/UL (4.0-11.2)
[2017-05-19 08:27] LABS: ALANINE AMINOTRANSFERASE 18 U/L (14-59); ALKALINE PHOSPHATASE 86 U/L (50-136); ASPARTATE AMINOTRANSFERASE 19 U/L (15-37); BILIRUBIN,TOTAL 0.5 mg/dL (0.2-1.0); CARBON DIOXIDE 26 mmol/L (21-32); CHLORIDE 104 mmol/L (98-107); CREATININE 0.8 mg/dL (0.6-1.3); GLUCOSE 117 mg/dL (74-106); MAGNESIUM 1.9 mg/dL (1.8-2.4); PHOSPHOROUS 3.9 mg/dL (2.5-4.9); POTASSIUM 4.1 mmol/L (3.5-5.1); TOTAL PROTEIN, SERUM 7.6 g/dL (6.4-8.2); UREA NITROGEN, BLOOD 20 mg/dL (7-18)
[2017-05-19] MEDS: LINAGLIPTIN 5 MG TABLET PO SCH (08:46)
[2017-05-19] MEDS: APIXABAN 5 MG TABLET PO SCH ×2 (08:46→17:31)
[2017-05-19] MEDS: RIVASTIGMINE TARTRATE 3 MG CAPSULE PO SCH ×2 (08:46→17:29)
[2017-05-19] MEDS: ATENOLOL 25 MG TABLET PO SCH (08:47)
[2017-05-19] MEDS: CARBIDOPA/LEVODOPA 25-100MG TABLET PO SCH ×3 (08:48→17:29)
[2017-05-19] MEDS: FLUVOXAMINE MALEATE 25 MG TABLET PO SCH ×2 (08:48→13:22)
[2017-05-19] MEDS: glyBURIDE 2.5 MG TABLET PO SCH ×2 (08:48→17:29)
[2017-05-19] MEDS: DOCUSATE SODIUM 100 MG CAPSULE PO SCH ×2 (08:49→17:29)
[2017-05-19] MEDS: CHOLECALCIFEROL 1,000 UNIT TABLET PO SCH (08:49)
[2017-05-19] MEDS: QUETIAPINE FUMARATE 25 MG TABLET PO SCH ×2 (08:49→13:22)
[2017-05-19] MEDS: CALCIUM CARBONATE 600 MG TABLET PO SCH (08:49)
[2017-05-19 15:46] VITALS: BP 110/66
[2017-05-19] MEDS: FLUVOXAMINE MALEATE 50 MG TABLET PO SCH (20:17)
[2017-05-19] MEDS: ATORVASTATIN 10 MG TABLET PO SCH (20:17)
[2017-05-19 20:31] VITALS: BP 131/81
--- NOTE | 2017-05-20 05:36 | NUR ---
PATIENT SLEPT FOR ABOUT 8HRS LAST THROUGH THE NIGHT. SHE IS A/O X 3 WITH NO CHANGES IN LOC. SHE IS CALM AND COOPERATIVE. NO BEHAVIOR PROBLEMS NOTED OR REPORTED. DURING THE SHIFT. NO DELUSIONS, AH/VH NOTED DURING THE SHIFT. PATIENT IS THE SHOWER. SHE IS COMPLIANT WITH MEDICATION REGIMENT. DIET AND PLAN OF CARE.
[2017-05-20] MEDS: PANTOPRAZOLE SODIUM 40 MG TABLET.DR PO SCH (06:23)
[2017-05-20] MEDS: BLOOD SUGAR DIAGNOSTIC 1 EACH STRIP VI SCH (06:40)
[2017-05-20 07:30] VITALS: BP 135/81
[2017-05-20] MEDS: DOCUSATE SODIUM 100 MG CAPSULE PO SCH ×2 (08:25→17:15)
[2017-05-20] MEDS: CALCIUM CARBONATE 600 MG TABLET PO SCH (08:25)
[2017-05-20] MEDS: FLUVOXAMINE MALEATE 25 MG TABLET PO SCH ×2 (08:25→12:53)
[2017-05-20] MEDS: RIVASTIGMINE TARTRATE 3 MG CAPSULE PO SCH ×2 (08:25→17:15)
[2017-05-20] MEDS: CARBIDOPA/LEVODOPA 25-100MG TABLET PO SCH ×3 (08:25→17:16)
[2017-05-20] MEDS: ATENOLOL 25 MG TABLET PO SCH (08:25)
[2017-05-20] MEDS: APIXABAN 5 MG TABLET PO SCH ×2 (08:26→17:15)
[2017-05-20] MEDS: LINAGLIPTIN 5 MG TABLET PO SCH (08:26)
[2017-05-20] MEDS: QUETIAPINE FUMARATE 25 MG TABLET PO SCH ×2 (08:26→12:53)
[2017-05-20] MEDS: CHOLECALCIFEROL 1,000 UNIT TABLET PO SCH (08:26)
[2017-05-20] MEDS: glyBURIDE 2.5 MG TABLET PO SCH ×2 (08:31→17:16)
[2017-05-20 16:47] VITALS: BP 117/69
[2017-05-20] MEDS: FLUVOXAMINE MALEATE 50 MG TABLET PO SCH (20:01)
[2017-05-20] MEDS: ATORVASTATIN 10 MG TABLET PO SCH (20:01)
[2017-05-20 20:48] VITALS: BP 139/71
--- NOTE | 2017-05-20 21:37 | NUR ---
PATIENT RECEIVED IN BED AWAKE. PATIENT ALERT/ORIENTED X2 WITH FLAT AFFECT NOTED. PATIENT IN NO APPARENT DISTRESS WILL CONTINUE TO MONITOR AND REDIRECT. PATIENT CALM AND COOPERATIVE. NO AGGRESSIVE OR COMBATIVE BEHAVIOR NOTED WILL CONTINUE TO MONITOR. PATIENT COMPLAINT WITH MEDICATION. PATIENT DENIES PAIN AT THIS TIME, WILL CONTINUE TO MONITOR.
[2017-05-21] MEDS ORDERED: TEMAZEPAM 7.5 MG CAPSULE PO PRN (03:30)
[2017-05-21] MEDS ORDERED: LORAZEPAM 1 MG TABLET PO PRN (03:30)
[2017-05-21] MEDS: PANTOPRAZOLE SODIUM 40 MG TABLET.DR PO SCH (06:17)
[2017-05-21] MEDS: BLOOD SUGAR DIAGNOSTIC 1 EACH STRIP VI SCH (06:31)
[2017-05-21 07:53] VITALS: BP 128/82
[2017-05-21] MEDS: QUETIAPINE FUMARATE 25 MG TABLET PO SCH ×2 (08:43→13:42)
[2017-05-21] MEDS: FLUVOXAMINE MALEATE 50 MG TABLET PO SCH ×2 (08:43→20:21)
[2017-05-21] MEDS: APIXABAN 5 MG TABLET PO SCH ×2 (08:43→17:02)
[2017-05-21] MEDS: CHOLECALCIFEROL 1,000 UNIT TABLET PO SCH (08:43)
[2017-05-21] MEDS: DOCUSATE SODIUM 100 MG CAPSULE PO SCH ×2 (08:43→17:01)
[2017-05-21] MEDS: RIVASTIGMINE TARTRATE 3 MG CAPSULE PO SCH ×2 (08:43→17:01)
[2017-05-21] MEDS: glyBURIDE 2.5 MG TABLET PO SCH ×2 (08:43→17:01)
[2017-05-21] MEDS: CALCIUM CARBONATE 600 MG TABLET PO SCH (08:43)
[2017-05-21] MEDS: CARBIDOPA/LEVODOPA 25-100MG TABLET PO SCH ×3 (08:43→17:01)
[2017-05-21] MEDS: ATENOLOL 25 MG TABLET PO SCH (08:44)
[2017-05-21] MEDS: LINAGLIPTIN 5 MG TABLET PO SCH (08:44)
[2017-05-21] MEDS: FLUVOXAMINE MALEATE 25 MG TABLET PO SCH (13:42)
[2017-05-21 16:37] VITALS: BP 105/69
[2017-05-21 20:00] VITALS: BP 108/57
[2017-05-21] MEDS: ATORVASTATIN 10 MG TABLET PO SCH (20:21)
--- NOTE | 2017-05-21 20:54 | NUR ---
PATIENT RECEIVED IN THE DAY ROOM, VERY OCCUPIED WITH COLORING PICTURES AND PAINTER, APPEARS VERY HAPPY DOING THAT, INTERACTS WHEN TALKED TO OR APPROACHED, NO BEH. PROBLEM NOTED AT THIS TIME, WILL CONTINUE TO MONITOR CLOSELY.
[2017-05-22 06:36] LABS: BASOPHILS % (AUTO) 0.6 % (0.0-2.0); EOSINOPHILS # (AUTO) 0.2 K/uL (0.0-0.7); EOSINOPHILS % (AUTO) 2.9 % (0.0-7.0); HEMATOCRIT 42.1 % (37-47); HEMOGLOBIN 13.7 G/DL (12.0-16.0); LYMPHOCYTES # (AUTO) 1.5 K/UL (0.8-4.8); LYMPHOCYTES % (AUTO) 20.1 % (20.5-51.5); MEAN CORPUSCULAR HEMOGLOBIN 28.2 UUG (27.0-31.0); MEAN CORPUSCULAR HGB CONC 33 g/dL (32.0-37.0); MEAN CORPUSCULAR VOLUME 86.3 FL (81.0-99.0); MONOCYTES # (AUTO) 0.5 K/UL (0.1-1.30); MONOCYTES % (AUTO) 7.1 % (0.0-11.0); NEUTROPHILS # (AUTO) 5.4 K/UL (1.8-8.9); NEUTROPHILS % (AUTO) 69.3 % (38.5-71.5); PLATELET COUNT (AUTO) 209 K/UL (150-450); RED BLOOD CELL COUNT(AUTO) 4.87 MIL/UL (4.2-5.4); WHITE BLOOD COUNT (AUTO) 7.6 K/UL (4.0-11.2)
[2017-05-22 07:06] LABS: ALANINE AMINOTRANSFERASE 20 U/L (14-59); ALKALINE PHOSPHATASE 94 U/L (50-136); ASPARTATE AMINOTRANSFERASE 18 U/L (15-37); BILIRUBIN,TOTAL 0.3 mg/dL (0.2-1.0); CARBON DIOXIDE 31 mmol/L (21-32); CHLORIDE 103 mmol/L (98-107); CREATININE 0.8 mg/dL (0.6-1.3); GLUCOSE 138 mg/dL (74-106); MAGNESIUM 1.7 mg/dL (1.8-2.4); PHOSPHOROUS 4.2 mg/dL (2.5-4.9); POTASSIUM 3.9 mmol/L (3.5-5.1); TOTAL PROTEIN, SERUM 7.8 g/dL (6.4-8.2); UREA NITROGEN, BLOOD 21 mg/dL (7-18)
[2017-05-22 07:30] VITALS: BP 117/74
[2017-05-22] MEDS: glyBURIDE 2.5 MG TABLET PO SCH (08:18)
[2017-05-22] MEDS: PANTOPRAZOLE SODIUM 40 MG TABLET.DR PO SCH (08:18)
[2017-05-22] MEDS: FLUVOXAMINE MALEATE 50 MG TABLET PO SCH (08:19)
[2017-05-22] MEDS: QUETIAPINE FUMARATE 25 MG TABLET PO SCH ×2 (08:20→12:47)
[2017-05-22] MEDS: RIVASTIGMINE TARTRATE 3 MG CAPSULE PO SCH (08:20)
[2017-05-22] MEDS: CHOLECALCIFEROL 1,000 UNIT TABLET PO SCH (08:20)
[2017-05-22] MEDS: CARBIDOPA/LEVODOPA 25-100MG TABLET PO SCH ×2 (08:20→12:47)
[2017-05-22] MEDS: CALCIUM CARBONATE 600 MG TABLET PO SCH (08:20)
[2017-05-22] MEDS: DOCUSATE SODIUM 100 MG CAPSULE PO SCH (08:20)
[2017-05-22] MEDS: LINAGLIPTIN 5 MG TABLET PO SCH (08:21)
[2017-05-22] MEDS: APIXABAN 5 MG TABLET PO SCH (08:21)
[2017-05-22] MEDS: BLOOD SUGAR DIAGNOSTIC 1 EACH STRIP VI SCH (08:32)
--- NOTE | 2017-05-22 10:07 | NUR ---
DC Note: The patient will be discharged today back to [facility] ([facility]) [[address], [place] [address] ] via ambulance. The patient is aware and agreeable with the discharge plan. VAUGHN spoke with the patient's brother [Cristian Alves, ] and he stated that he would like for the patient to return to the facility upon discharge. VAGUHN spoke with Phu in admissions at the facility upon the patient's admission, and she stated that they would be accepting the patient back. VAUGHN spoke with Robert at the facility today who stated that they will be accepting the patient back. The patient will follow-up with telecommunications support Dr. Piper and psychiatrist Dr. Munoz at the facility.
[2017-05-22] MEDS ORDERED: MAGNESIUM OXIDE 400 MG TABLET PO ONE (10:15)
[2017-05-22 10:23] VITALS: BP 123/73
[2017-05-22] MEDS: ATENOLOL 25 MG TABLET PO SCH (10:23)
[2017-05-22] MEDS: FLUVOXAMINE MALEATE 25 MG TABLET PO SCH (12:47)
--- NOTE | 2017-05-22 14:06 | NUR ---
1100 called [facility] spokt with MS. Shane, Bean Sprout Grower reprt given regarding patient will be back to their facility via ambulance. Nurse notify regardiding diagnosis, medications to continue upon discharge, patient mental status, nurse verbalized understyanding. 1330 Patient picked up by ambulance and discharge to SNF mentioned above, patient alert and ox1, denies SI/HI. no delusion/ no hallucinations nioted.
== END 2017-05-22 13:30 | DRG 885 ==
LOC: ER 21:06 → GPS 23:25
PROVIDERS: ADMIT Psychiatry & Neurology Psychiatry; ATTEND Internal Medicine
DX: F25.1 Schizoaffective disorder, depressive type (principal); D68.59 Other primary thrombophilia; N39.0 Urinary tract infection, site not specified; F03.91 Unspecified dementia, unspecified severity, with behavioral disturbance; E87.1 Hypo-osmolality and hyponatremia; B96.89 Other specified bacterial agents as the cause of diseases classified elsewhere; Z85.3 Personal history of malignant neoplasm of breast; Z90.11 Acquired absence of right breast and nipple; Z90.710 Acquired absence of both cervix and uterus; I48.91 Unspecified atrial fibrillation; Z79.01 Long term (current) use of anticoagulants; E66.8 Other obesity; Z68.29 Body mass index [BMI] 29.0-29.9, adult; G20 Parkinson's disease; K21.9 Gastro-esophageal reflux disease without esophagitis; E78.5 Hyperlipidemia, unspecified; E55.9 Vitamin D deficiency, unspecified; E11.9 Type 2 diabetes mellitus without complications; I11.9 Hypertensive heart disease without heart failure; I51.9 Heart disease, unspecified; Z79.899 Other long term (current) drug therapy; Z79.84 Long term (current) use of oral hypoglycemic drugs; F20.0 Paranoid schizophrenia; E83.42 Hypomagnesemia
CPT/HCPCS: 36415; 71010; 80307; 82306; 83735; 84100; 84443; 85025; 87086; 93005; 97161; A4663; G0480; J1200; J1630; J1815; J2060

== ENCOUNTER 2017-07-16 16:39 | Inpatient (IN) | payer MEDICARE, MEDICAID ==
[~2017-07-16] VITALS: Ht 170.2 cm; Wt 79.8 kg
[~2017-07-16 16:39] MED LIST changes: -CARB-110 PO; +CARB1TAB21 PO; -GEMF600T3 PO; -GLUC1VIA4 IJ; -MAG30ORA PO; -MAGN400O6 PO; -OMEP20CA10 PO; +PANT40TA4 PO
[2017-07-16 17:06] LABS: BASOPHILS # (AUTO) 0.1 K/uL (0.0-8.0); BASOPHILS % (AUTO) 1.3 % (0.0-2.0); EOSINOPHILS # (AUTO) 0.1 K/uL (0.0-0.7); EOSINOPHILS % (AUTO) 2.3 % (0.0-7.0); HEMATOCRIT 39.3 % (37-47); HEMOGLOBIN 12.5 G/DL (12.0-16.0); LYMPHOCYTES # (AUTO) 1.8 K/UL (0.8-4.8); LYMPHOCYTES % (AUTO) 27.5 % (20.5-51.5); MEAN CORPUSCULAR HEMOGLOBIN 27.9 UUG (27.0-31.0); MEAN CORPUSCULAR HGB CONC 32 g/dL (32.0-37.0); MEAN CORPUSCULAR VOLUME 87.8 FL (81.0-99.0); MONOCYTES # (AUTO) 0.7 K/UL (0.1-1.30); MONOCYTES % (AUTO) 10.9 % (0.0-11.0); NEUTROPHILS # (AUTO) 3.8 K/UL (1.8-8.9); PLATELET COUNT (AUTO) 171 K/UL (150-450); RED BLOOD CELL COUNT(AUTO) 4.47 MIL/UL (4.2-5.4); WHITE BLOOD COUNT (AUTO) 6.5 K/UL (4.0-11.2)
[2017-07-16 17:09] LABS: CARBON DIOXIDE 28 mmol/L (21-32); CHLORIDE 108 mmol/L (98-107); CREATININE 0.7 mg/dL (0.6-1.3); GLUCOSE 93 mg/dL (74-106); POTASSIUM 3.8 mmol/L (3.5-5.1); UREA NITROGEN, BLOOD 18 mg/dL (7-18)
[2017-07-16 17:14] LABS: ALANINE AMINOTRANSFERASE 15 U/L (14-59); ALKALINE PHOSPHATASE 85 U/L (50-136); ASPARTATE AMINOTRANSFERASE 19 U/L (15-37); BILIRUBIN,DIRECT 0.1 mg/dL (0.0-0.2); BILIRUBIN,TOTAL 0.3 mg/dL (0.2-1.0); TOTAL PROTEIN, SERUM 7.2 g/dL (6.4-8.2)
[2017-07-16 17:16] LABS: ACETAMINOPHEN < 2.0 ug/mL (10-30)
[2017-07-16 17:29] LABS: ETHANOL < 3 MG/DL (0-0)
--- NOTE | 2017-07-16 17:48 | NUR ---
MSE COMPLETED, SBAR REPORT TO INGE WARE, BELONGINGS LIST/ADMIT ORDER/MRSA-NARES ORDERED-SENT. PT RESTING, NO DISTRESS NOTED, COOPERATIVE, ALERT TO NAME AND PLACE.
--- NOTE | 2017-07-16 18:01 | NUR ---
PT VIA AMALIA TO RM 138A.
[2017-07-16] MEDS ORDERED: ATOR10TA PO (18:05)
[2017-07-16] MEDS ORDERED: LINA5TAB PO (18:05)
[2017-07-16] MEDS ORDERED: PANT40TA2 PO (18:05)
[2017-07-16] MEDS ORDERED: FLUV50TA3 PO (18:05)
[2017-07-16] MEDS ORDERED: TEMA7.5C PO (18:05)
[2017-07-16] MEDS ORDERED: MAGN400O6 PO (18:05)
[2017-07-16] MEDS ORDERED: QUET50TA PO ×2 (18:05)
[2017-07-16] MEDS ORDERED: LORA1TAB PO (18:05)
[2017-07-16] MEDS ORDERED: RIVA3CAP5 PO (18:05)
[2017-07-16] MEDS ORDERED: ATEN-170 PO (18:05)
[2017-07-16] MEDS ORDERED: ACET-2154 PO (18:05)
--- NOTE | 2017-07-16 18:10 | NUR ---
Patient in from ER via gurney. vitals signs stable and ambulated to sit on chair with minimal assistance. AAOX2. no c/of pain. Incoming shift aware that attending medical physician still needs to be notified of pt's admission.
--- NOTE | 2017-07-16 19:21 | NUR ---
Report given to incoming rn. she was endorse to call medical attending physician, and continue with plan of care.
[2017-07-16 20:18] VITALS: BP 130/80
--- NOTE | 2017-07-16 22:00 | NUR ---
received to care, sitting in her room, pleasant, but guarded, upon approach. observed to be talking to self. compliant with staff. no interactions noted with peers. as of 2199, she remains in bed, reading a magazine. no distress noted. will continue to monitor closely.
--- NOTE | 2017-07-16 22:55 | NUR ---
pt is now wandering the hallway, testing the doors, intrusive with peers rooms. PRN restoril was given, and she was redirected back to her room.
--- NOTE | 2017-07-16 23:30 | NUR ---
is wandering the hallway. intrusive into peers rooms. difficult to redirect. assisted into the gilbert chair, for safety, and placed at the nurses station, for closer monitoring.
--- NOTE | 2017-07-17 | NUR ---
remains agitated. yelling out. talking to unseen entities. PRN ativan was given at this time.
--- NOTE | 2017-07-17 00:56 | NUR ---
remains hyperverbal, but appears calmer. refuses to go to bed. remains at nurses station for monitoring. will continue to monitor closely.
--- NOTE | 2017-07-17 03:00 | NUR ---
appears to be asleep. no distress noted.
--- NOTE | 2017-07-17 06:15 | NUR ---
slept 3.0 hours, total. assisted with AM care, and shower. currently sitting in her room. no distress noted. will continue to monitor closely.
[2017-07-17 07:30] VITALS: BP 108/91
[2017-07-17 08:30] LABS: CREATININE 0.7 mg/dL (0.6-1.3)
[2017-07-17 10:35] LABS: *BILIRUBIN,URIN NEGATIVE (NEGATIVE); *BLOOD, URINE Trace-lysed (NEGATIVE); *CLARITY,URINE CLEAR (CLEAR); *COLOR,URINE YELLOW (YELLOW); *KETONES,URINE NEGATIVE (NEGATIVE); *PROTEIN,URINE NEGATIVE (NEGATIVE); *UROBILINOGEN,URINE 0.2 E.U./dl (NORMAL); LEUKOCYTE ESTERASE ,URINE 1+ (NEGATIVE); NITRITE, URINE NEGATIVE (NEGATIVE); PH,URINE 5.5 (5.0-8.0); UGLUCOSE NEGATIVE (NEGATIVE)
[2017-07-17 10:43] LABS: BACTERIA,URINE FEW /HPF (NONE SEEN); SQUAMOUS EPITHELIAL CELL,UR FEW /HPF (NONE SEEN)
[2017-07-17 10:46] LABS: *AMPHETAMINE, URINE NEGATIVE (NEGATIVE); *BARBITURATE, URINE NEGATIVE (NEGATIVE); *CANNABINOID, URINE NEGATIVE (NEGATIVE); *COCCAINE, URINE NEGATIVE (NEGATIVE); *OPIATE, URINE NEGATIVE (NEGATIVE); *PHENCYCLIDINE SCREEN,URINE NEGATIVE (NEGATIVE)
[2017-07-17 16:00] VITALS: BP 116/59
[2017-07-17 21:44] VITALS: BP 127/69
--- NOTE | 2017-07-18 04:22 | NUR ---
Pt ANXIOUS AND RESTLESS AT BEGINNING OF SHIFT, ATIVAN 1 MG ADMINISTERED WITH GOOD EFFECT. Pt RESTED UNTIL SHE WOKE UP AT 0300 TO TO GO THE BATHROOM. Pt REFUSED TO GET OUT OF THE BATHROOM AND BECAME AGGRESSIVE TOWARD STAFF. Pt WAS GIVEN ANOTHER DOSE OF ATIVAN 1MG AT 0348 WITH GOOD EFFECT. Pt NOW RESTING COMFORTABLY.
[2017-07-18 07:30] VITALS: BP 119/66
--- NOTE | 2017-07-18 12:56 | NUR ---
Initial discharge instructions: Pt resides at [facility] [[address] [place] [address];[phone]].Spoke with John at the facility who stated they would accept the pt back.VAUGHN called pt's brother,Cristian [phone] and left a voicemail requesting a call back.VAUGHN will speak with pt,family,and MD regarding appropriate discharge plans.SW will form a safe and proper discharge.
[2017-07-18 16:00] VITALS: BP 121/76
[2017-07-18 20:18] VITALS: BP 107/65
[2017-07-19 07:30] VITALS: BP 107/57
[2017-07-19 15:17] VITALS: BP 97/55
[2017-07-19 20:06] VITALS: BP 102/63
[2017-07-20 07:30] VITALS: BP 95/52
[2017-07-20 07:53] LABS: BASOPHILS # (AUTO) 0.1 K/uL (0.0-8.0); BASOPHILS % (AUTO) 1.3 % (0.0-2.0); EOSINOPHILS # (AUTO) 0.2 K/uL (0.0-0.7); EOSINOPHILS % (AUTO) 2.8 % (0.0-7.0); HEMATOCRIT 41.2 % (37-47); HEMOGLOBIN 13.2 G/DL (12.0-16.0); LYMPHOCYTES # (AUTO) 1.6 K/UL (0.8-4.8); LYMPHOCYTES % (AUTO) 21.8 % (20.5-51.5); MEAN CORPUSCULAR HEMOGLOBIN 28.3 UUG (27.0-31.0); MEAN CORPUSCULAR HGB CONC 32 g/dL (32.0-37.0); MONOCYTES # (AUTO) 0.6 K/UL (0.1-1.30); MONOCYTES % (AUTO) 8.2 % (0.0-11.0); NEUTROPHILS # (AUTO) 4.9 K/UL (1.8-8.9); NEUTROPHILS % (AUTO) 65.9 % (38.5-71.5); PLATELET COUNT (AUTO) 196 K/UL (150-450); RED BLOOD CELL COUNT(AUTO) 4.68 MIL/UL (4.2-5.4); WHITE BLOOD COUNT (AUTO) 7.4 K/UL (4.0-11.2)
[2017-07-20 08:06] LABS: ALANINE AMINOTRANSFERASE 26 U/L (14-59); ALKALINE PHOSPHATASE 100 U/L (50-136); ASPARTATE AMINOTRANSFERASE 30 U/L (15-37); BILIRUBIN,TOTAL 0.5 mg/dL (0.2-1.0); CARBON DIOXIDE 26 mmol/L (21-32); CHLORIDE 103 mmol/L (98-107); CREATININE 1.1 mg/dL (0.6-1.3); GLUCOSE 109 mg/dL (74-106); MAGNESIUM 1.9 mg/dL (1.8-2.4); POTASSIUM 4.3 mmol/L (3.5-5.1); TOTAL PROTEIN, SERUM 8.1 g/dL (6.4-8.2); UREA NITROGEN, BLOOD 26 mg/dL (7-18)
[2017-07-20 16:34] VITALS: BP 98/79
[2017-07-20 20:08] VITALS: BP 108/65
--- NOTE | 2017-07-20 22:00 | NUR ---
GPS: Patient is wandering the hallway. intrusive into peers rooms. difficult to redirect. Assisted into the in bed for safety, continue monitoring for safety.
--- NOTE | 2017-07-21 06:45 | NUR ---
GPS: REMAIN CALM AND COOPERATIVE WITH MEDS AND CARE.SLEPT 06:30 HRS THROUGH THE NIGHT.SHOWERED THIS MORNING. ASSISTED WITH ADL'S. SITTING IN HER BED IN HER ROOM NOW. DENIED PAIN OR DISCOMFORT THIS TIME. BLOOD SUGAR 95 MG/DL. THIS MORNING.
[2017-07-21 07:30] VITALS: BP 113/65
[2017-07-21 15:47] VITALS: BP 91/61
[2017-07-21 20:37] VITALS: BP 106/65
--- NOTE | 2017-07-22 06:21 | NUR ---
RECEIVED Pt IN THE DAY ROOM TALKING TO HERSELF, Pt ACTIVELY RTIS. A+Ox1 TO NAME ONLY, APPEARS DISORGANIZED, DISORIENTED AND CONFUSED. HOARDS ITEMS IN HER ROOM, BECOMES AGITATED WHEN ITEMS ARE TAKEN AWAY TO BE RETURNED TO THEIR NATIONAL INSURANCE OFFICER. PRESENTS ANXIOUS AND RESTLESS, RESTORIL 735mg ADMINISTERED AT 2337 WITH MODERATE EFFECT. EXHIBITS RAMBLING, PRESSURED SPEECH AND BLUNTED AFFECT. DENIES SI/AH/VH, THOUGH APPEARS INTERNALLY PREOCCUPIED, TALKING TO HERSELF AND UNSEEN OTHERS. DENIES PAIN, VS STABLE, IN NO ACUTE DISTRESS DURING SHIFT. COMPLIANT WITH MEDICATIONS, COOPERATIVE WITH STAFF DIRECTION, AND IS RE-DIRECTABLE. NO ACUTE DISTRESS AT THIS TIME. AM BS 84, SLEPT 3.5 HOURS
[2017-07-22 07:33] VITALS: BP 110/60
--- NOTE | 2017-07-22 20:00 | NUR ---
received pt awake AOx1. observed wandering room. Pt still hoarding and walking into other peer room. Remains disorganized and internally preoccupied. No acute distress noted. compliant with mediations. Will continue to monitor for safety.
[2017-07-22 20:27] VITALS: BP 106/64
--- NOTE | 2017-07-23 04:30 | NUR ---
pt awake confused and disoriented, wandering unit and walking to other peer room and took blanket from dirty linen. Pt was redirected, observed talking/mumbling to self. Pt given ativan prn. No acute distress noted.
[2017-07-23 07:37] VITALS: BP 102/70
[2017-07-23 16:42] VITALS: BP 112/63
[2017-07-23 19:56] VITALS: BP 114/55
--- NOTE | 2017-07-24 04:34 | NUR ---
Pt AWOKE AND BEGAN WANDERING AND ATTEMPTING TO GO INTO OTHER PATIENT'S ROOMS. Pt NOTED TO BE RESTLESS AND ANXIOUS. ATIVAN 1mg ADMINISTERED WITH MODERATE EFFECT.
[2017-07-24 07:30] VITALS: BP 107/61
[2017-07-24 13:00] VITALS: BP 102/60
--- NOTE | 2017-07-24 15:00 | NUR ---
CONTINUES TO WALK BACK AND FORTH BUT COMPLIANT WITH MEDICATIONS AND CARE.WAS IN THE ACTIVITY ROOM DRAWING AND PAINTING AT THIS TIME.
[2017-07-24 15:05] VITALS: BP 102/60
[2017-07-24 20:26] VITALS: BP 115/66
--- NOTE | 2017-07-24 22:00 | NUR ---
received to care, sitting in her room, isolative, but pleasant upon approach. compliant with medications and staff direction. as of 2199, she appears to be asleep. no distress noted. will continue to monitor closely.
--- NOTE | 2017-07-25 06:00 | NUR ---
slept 3.0 hours, total. assisted with AM care. currently sitting in her room. no distress noted. will continue to monitor closely. Addendum: 07/25/17 at 0655 by ARIA CHANDLER LVN error/slept 4 hours total
[2017-07-25 07:30] VITALS: BP 117/76
--- NOTE | 2017-07-25 11:45 | NUR ---
PATIENT WAS IN THE TV ROOM WALKING BACK AND FORTH AND THEN TRIPPED SHE WAS WALKING FROM ONE TABLE TO THE OTHER AND LANDED ON HER LEFT KNEE WAS ASSISTED UP BY THE RECREATION THERAPIST PATIENT STATED THAT SHE HAS PAIN ON HER LEFT KNEE.ABLE TO AMBULATE BACK TO HER ROOM AND BODY CHECKED AND NO REDNESS OR OPEN AREAS BUT PATIENT COMPLAINED OF PAIN ON HER LEFT KNEE.VITALS CHECKED AND RECORDED TEMP 97.1 HR 73 R 19 B/P 105/70. RANGE OF MOTION IS ADEQUATE ICE APPLIED TO THE LEFT KNEE DR SANCHEZ CALLED AND LEFT HIM A MESSAGE.
--- NOTE | 2017-07-25 12:00 | NUR ---
DR SANCHEZ RETURNED CALL WITH NEW ORDERS AND NOTED
--- NOTE | 2017-07-25 13:25 | NUR ---
RESULT OF THE LEFT KNEE XRAY IS NEGATIVE DR SANCHEZ AWARE.
--- NOTE | 2017-07-25 13:28 | NUR ---
CALLED PATIENTS BROTHER VICENTE ON THE 2 PHONE NUMBERS IN HER CHART ONE IS NOT RECEIVING MESSAGE SO I LEFT A MESSAGE ON [phone]
--- NOTE | 2017-07-25 18:00 | NUR ---
AMBULATORY BACK AND FORTH REMAIN CONFUSED DENIES PAIN OR DISCOMFORTS LEFT KNEE WITH NO REDNESS AT THIS TIME WITH ADEQUATE RANGE OF MOTION WILL CONTINUE TO OBSERVE
[2017-07-25 20:23] VITALS: BP 118/77
--- NOTE | 2017-07-25 22:00 | NUR ---
received to care, lying in bed, isolative, but pleasant upon approach. compliant with medications and staff direction. as of 2199, she appears to be asleep. no distress noted. will continue to monitor closely
--- NOTE | 2017-07-26 06:00 | NUR ---
slept 3.5 hours, total
--- NOTE | 2017-07-26 07:00 | NUR ---
RECEIVED TO CARE,PT IN ROOM ASLEEP, RESP EVEN/UNLABORED, NO DISTRESS.
[2017-07-26 07:30] VITALS: BP 107/51
--- NOTE | 2017-07-26 09:00 | NUR ---
Pt in room, isolative and guarded but pleasant, pt took all am meds. Will continue to monitor.
--- NOTE | 2017-07-26 13:29 | NUR ---
PT REMAINS IN ROOM, GUARDED, ISOLATIVE BUT PLEASANT, PT IS MED COMPLIANT, TOOK ALL 1300 MEDS.
[2017-07-26 20:00] VITALS: BP 123/73
--- NOTE | 2017-07-26 22:00 | NUR ---
received to care, sitting in the hallway, pleasant upon approach. compliant with medications and staff direction. as of 2199, she remains awake. no distress noted. will continue to monitor closely
--- NOTE | 2017-07-26 22:24 | NUR ---
PRN restoril, given, for insomnia.
--- NOTE | 2017-07-26 23:00 | NUR ---
appears to be asleep. no distress noted.
--- NOTE | 2017-07-27 06:00 | NUR ---
slept 6.0 hours, total.
[2017-07-27 07:30] VITALS: BP 106/72
[2017-07-27 15:16] VITALS: BP 116/74
[2017-07-27 20:08] VITALS: BP 111/70
--- NOTE | 2017-07-28 07:30 | NUR ---
along hallway, walking around. denies discomfort
--- NOTE | 2017-07-28 08:14 | NUR ---
Patient noted to sleep 4.30 hours without incident. Cooperative with scheduled medications. No behjavior deficits.
--- NOTE | 2017-07-28 11:10 | NUR ---
in tv room, reading paper, mumbling prn by herself
[2017-07-28 12:56] VITALS: BP 124/83
--- NOTE | 2017-07-28 13:00 | NUR ---
more cooperative with meds intake, just took the meds.
[2017-07-28 15:29] VITALS: BP 139/75
--- NOTE | 2017-07-28 17:50 | NUR ---
appetite good, continue to take meds without resistance. stayed mostly in room during early pm. no outburst during early pm
[2017-07-28 20:19] VITALS: BP 135/82
--- NOTE | 2017-07-29 06:46 | NUR ---
REFUSED SHOWER THIS MORNING. IN NO ACUTE DISTRESS AT THIS TIME.
--- NOTE | 2017-07-29 06:49 | NUR ---
SLEPT 6.5 HOURS
[2017-07-29 07:30] VITALS: BP 137/80
[2017-07-29 08:37] VITALS: BP 137/80
--- NOTE | 2017-07-29 10:17 | NUR ---
DC Note: Patient will be discharged to [facility] [[address] [place] [address]; [phone]] via ambulance at 12:00 pm. Spoke with Phu at the facility who stated they would accept the patient today. Spoke with patient's brother, Cristian Alves ([phone]] who is aware and agreeable with discharge plans. Patient is aware and agreeable with discharge plans as well. Patient will follow-up with (Psychiatrist) and (Diesel Truck Crane Operator) at the facility.
--- NOTE | 2017-07-29 12:02 | NUR ---
Discharge note:Patient will be discharged to [facility] [[address] [place] [address]; [phone]] via ambulance at 12:00 pm. Report given to JACQUELINE Boyd at [facility]. Copies of patient MAR, History, labs, education materials about her diagnosis and medication was copied. Discharged instructions reviewed with patient. Patient will follow-up with (Psychiatrist) and (Glassine Machine Tender) at the facility. Addendum: 07/29/17 at 1314 by XIOMARA CHEN RN Discharged instructions reviewed with ambulance staff. Patient condition stable, no c/o pain or discomfort noted, denies suicidal/homicidal ideations. Patient was discharged at around 1245 via ambulance.
== END 2017-07-29 12:45 | DRG 885 ==
LOC: ER 16:41 → GPS 17:53
PROVIDERS: ADMIT Psychiatry & Neurology Psychiatry; ATTEND Internal Medicine
DX: F25.9 Schizoaffective disorder, unspecified (principal); F02.81 Dementia in other diseases classified elsewhere, unspecified severity, with behavioral disturbance; D68.59 Other primary thrombophilia; G20 Parkinson's disease; N39.0 Urinary tract infection, site not specified; F23 Brief psychotic disorder; F29 Unspecified psychosis not due to a substance or known physiological condition; I48.91 Unspecified atrial fibrillation; K21.9 Gastro-esophageal reflux disease without esophagitis; Z79.01 Long term (current) use of anticoagulants; F32.9 Major depressive disorder, single episode, unspecified; E78.5 Hyperlipidemia, unspecified; E66.9 Obesity, unspecified; I10 Essential (primary) hypertension; Z68.27 Body mass index [BMI] 27.0-27.9, adult; E11.9 Type 2 diabetes mellitus without complications; Z79.899 Other long term (current) drug therapy; Z79.84 Long term (current) use of oral hypoglycemic drugs
CPT/HCPCS: 36415; 71010; 73560; 80307; 83735; 84100; 85025; 87086; 93005; A4663; G0480; G0480-TC; J1815

== ENCOUNTER 2021-08-29 18:41 | Inpatient (IN) | payer MEDICARE, OTHER ==
[~2021-08-29] VITALS: Ht 160 cm; Wt 49.9 kg
[~2021-08-29 18:41] MED LIST changes: +ATEN-170 PO; +ATOR10TA PO; +LINA5TAB PO; -LISI-603 PO; +LISI20TA30 PO; +LORA1TAB PO; +MAGN400O6 PO; +PANT40TA2 PO; -PANT40TA4 PO; +PANT40TA49 PO; +TEMA7.5C PO
[2021-08-29 19:17] LABS: HEMATOCRIT 33.1 % (31.2-41.9); MEAN CORPUSCULAR HEMOGLOBIN 31.6 uug (24.7-32.8); MEAN CORPUSCULAR VOLUME 94.7 fL (75.5-95.3); PLATELET COUNT (AUTO) 259 K/uL (179-408)
[2021-08-29 19:21] LABS: CARBON DIOXIDE 26 mmol/L (21-32); CHLORIDE 104 mmol/L (98-107); CREATININE 0.5 mg/dL (0.6-1.3); GLUCOSE 128 mg/dL (74-106); POTASSIUM 3.7 mmol/L (3.5-5.1); UREA NITROGEN, BLOOD 18 mg/dL (7-18)
[2021-08-29 19:27] LABS: ALANINE AMINOTRANSFERASE 24 U/L (14-59); ALKALINE PHOSPHATASE 100 U/L (50-136); ASPARTATE AMINOTRANSFERASE 27 U/L (15-37); BILIRUBIN,DIRECT 0.1 mg/dL (0.0-0.2); BILIRUBIN,TOTAL 0.2 mg/dL (0.2-1.0); TOTAL PROTEIN, SERUM 6.7 g/dL (6.4-8.2)
[2021-08-29 19:33] LABS: ACETAMINOPHEN < 2.0 ug/mL (10-30)
[2021-08-29 19:37] LABS: ETHANOL < 3 MG/DL (0-0)
[2021-08-29] MEDS ORDERED: MULT-594 PO (19:44)
[2021-08-29] MEDS ORDERED: ATOR10TA PO (19:44)
[2021-08-29] MEDS ORDERED: MIRT-93 PO (19:44)
[2021-08-29] MEDS ORDERED: RIVA1PAT TP (19:44)
[2021-08-29] MEDS ORDERED: INSU100V42 SQ (19:44)
[2021-08-29] MEDS ORDERED: DEXT50DI8 IV (19:44)
[2021-08-29] MEDS ORDERED: CARB1TAB31 PO (19:44)
[2021-08-29] MEDS ORDERED: OLAN2.5T3 PO ×2 (19:44)
[2021-08-29] MEDS ORDERED: AMIO200T5 PO (19:44)
[2021-08-29] MEDS ORDERED: ASCO500T10 PO (19:44)
[2021-08-29] MEDS ORDERED: LISI-782 PO (19:44)
[2021-08-29] MEDS ORDERED: METO-357 PO (19:44)
[2021-08-29] MEDS ORDERED: GLUC1KIT IM (19:44)
[2021-08-29] MEDS ORDERED: DEXT15LI12 PO (19:44)
[2021-08-29] MEDS ORDERED: LORA2VIA33 IM (19:44)
[2021-08-29] MEDS ORDERED: FURO-152 PO (19:44)
[2021-08-29] MEDS ORDERED: MAGNESIUM SULFATE 2 GM in IV DEXTROSE 5% 100 ML IV STA (20:45)
[2021-08-29] MEDS ORDERED: MAGNESIUM SULFATE/D5W 200 ML ONE ×2 (21:24→22:49)
[2021-08-29] MEDS ORDERED: MAGNESIUM SULFATE 2 GM in IV DEXTROSE 5% 100 ML IV ONE (22:30)
[2021-08-29 23:28] LABS: *BILIRUBIN,URIN NEGATIVE (NEGATIVE); *CLARITY,URINE CLOUDY (CLEAR); *COLOR,URINE YELLOW (YELLOW); *KETONES,URINE NEGATIVE (NEGATIVE); *UROBILINOGEN,URINE 0.2 E.U./dl (NORMAL); LEUKOCYTE ESTERASE ,URINE TRACE (NEGATIVE); NITRITE, URINE POSITIVE (NEGATIVE); PH,URINE 6.5 (5.0-8.0); UGLUCOSE NEGATIVE (NEGATIVE)
[2021-08-29 23:30] LABS: *BLOOD, URINE TRACE (NEGATIVE)
[2021-08-29 23:38] LABS: BACTERIA,URINE MANY /HPF (NONE SEEN); SQUAMOUS EPITHELIAL CELL,UR FEW /HPF (NONE SEEN)
[2021-08-29 23:43] LABS: *AMPHETAMINE, URINE NEGATIVE (NEGATIVE); *CANNABINOID, URINE NEGATIVE (NEGATIVE); *COCCAINE, URINE NEGATIVE (NEGATIVE); *OPIATE, URINE NEGATIVE (NEGATIVE); *PHENCYCLIDINE SCREEN,URINE NEGATIVE (NEGATIVE)
[2021-08-30] MEDS ORDERED: ONDANSETRON 4 MG/2 ML VIAL IV PRN (00:45)
[2021-08-30] MEDS ORDERED: CEphaleXIN 500 MG CAPSULE PO SCH ×2 (00:45→18:00)
[2021-08-30] MEDS ORDERED: ACETAMINOPHEN 325 MG TABLET PO PRN (00:45)
[2021-08-30] MEDS ORDERED: CEphaleXIN 500 MG CAPSULE ONE (01:40)
[2021-08-30 07:30] VITALS: BP 151/80
[2021-08-30] MEDS: HALOPERIDOL 0.5 MG TABLET PO SCH ×2 (13:53→17:12)
[2021-08-30 15:15] VITALS: BP 98/64
[2021-08-30] MEDS ORDERED: MIRTAZAPINE 15 MG TABLET PO SCH (21:00)
[2021-08-30] MEDS ORDERED: RIVASTIGMINE TARTRATE 1.5 MG CAPSULE PO SCH (21:00)
== END 2021-08-30 18:25 | DRG 309 ==
LOC: ER 18:44 → TELE3 08-30 08:12
PROVIDERS: ADMIT Nurse Practitioner Family; ATTEND Nurse Practitioner Family
DX: I45.10 Unspecified right bundle-branch block (principal); N39.0 Urinary tract infection, site not specified; E44.0 Moderate protein-calorie malnutrition; Z68.1 Body mass index [BMI] 19.9 or less, adult; Z79.01 Long term (current) use of anticoagulants; Z79.4 Long term (current) use of insulin; Z79.84 Long term (current) use of oral hypoglycemic drugs; E11.9 Type 2 diabetes mellitus without complications; E04.1 Nontoxic single thyroid nodule; E88.09 Other disorders of plasma-protein metabolism, not elsewhere classified; F25.9 Schizoaffective disorder, unspecified; G20 Parkinson's disease; G30.9 Alzheimer's disease, unspecified; F02.80 Dementia in other diseases classified elsewhere, unspecified severity, without behavioral disturbance, psychotic disturbance, mood disturbance, and anxiety; E78.5 Hyperlipidemia, unspecified; I10 Essential (primary) hypertension; K21.9 Gastro-esophageal reflux disease without esophagitis; R94.31 Abnormal electrocardiogram [ECG] [EKG]; Z73.6 Limitation of activities due to disability; I48.0 Paroxysmal atrial fibrillation; Z20.822 Contact with and (suspected) exposure to COVID-19; Z79.899 Other long term (current) drug therapy
CPT/HCPCS: 36415; 71045; 71250; 85025; 87077; 87086; 93005; A4663; C1758; G0378; G0480; J3475

== ENCOUNTER 2021-08-30 18:52 | Inpatient (IN) | payer MEDICARE, OTHER ==
[~2021-08-30] VITALS: Ht 162.6 cm; Wt 51.3 kg
[~2021-08-30 18:52] MED LIST changes: +AMIO200T5 PO; +ASCO500T10 PO; -ATEN-170 PO; -ATEN25TA PO; -CARB1TAB21 PO; +CARB1TAB31 PO; +DEXT15LI12 PO; +DEXT50DI8 IV; +FURO-152 PO; +GLUC1KIT IM; -GLYB2.5T4 PO; +INSU100V42 SQ; -LINA5TAB PO; +LISI-782 PO; -LISI20TA30 PO; -LORA1TAB PO; +LORA2VIA33 IM; -MAGN400O6 PO; +METO-357 PO; +MIRT-93 PO; +MULT-594 PO; +OLAN2.5T3 PO; -PANT40TA49 PO; +RIVA1PAT TP; -SITA100T PO; -TEMA7.5C PO; -VALS80TA2 PO
--- NOTE | 2021-08-30 19:00 | NUR ---
GPS: RECEIVED REPORT FROM CHAZ DELGADILLO OF MED SURG FOR THIS PT. PER REPORT, PT CAME FROM [facility] PT BECAME COMBATIVE, INCREASE AGITATION, BREAKING WINDOW AND THROWING FECES. PT ALERT/ORIENTED X1. ON CARDIAC DIET. PT WAS GIVEN HALDOL 0.5MG PO AFTER LUNCH . WITH DIAPER ON, PT IS CONTINENT/ INCONTINENT SOMETIMES. 72 HR HOLD UP TO 08/29 @ 2152 HELD FOR GRAVELY DISABLED. ON KEFLEX PO EVERY 12 HRS X 7 DAYS FOR UTI STARTED TODAY AT ER. PT WITH PROLONGED QRS PER ECG RESULT AND WILL HAVE REPEAT EKG IN 48HRS. ON FULL CODE AND NO NKDA. PSYCHIATRIST WILL BE DR CUMMINGS AND GROOVING MACHINE OPERATOR DR BERNA BRIDGES.
[2021-08-30] MEDS ORDERED: MAG HYDROX/AL HYDROX/SIMETH 30 ML LIQUID UDC PO PRN (21:45)
[2021-08-30] MEDS ORDERED: MAGNESIUM HYDROXIDE 30 ML LIQUID UDC PO PRN (21:45)
[2021-08-30] MEDS ORDERED: BLOOD SUGAR DIAGNOSTIC 1 EACH STRIP VI ONE (21:45)
[2021-08-30 22:10] VITALS: BP 127/70
[2021-08-30] MEDS: CEphaleXIN 500 MG CAPSULE PO SCH (23:33)
[2021-08-30] MEDS: LORAZEPAM 0.5 MG TABLET PO PRN (23:33)
[2021-08-31] MEDS: TEMAZEPAM 7.5 MG CAPSULE PO PRN ×2 (01:14→22:18)
--- NOTE | 2021-08-31 05:26 | NUR ---
Received to care, talking to self, uncooperative with interview, and physical assessment. She has poor insight. Believes she is here for an infection. Ativan was given at 2333, for increased agitation. It was ineffective, so she was given Restoril, at 0114, and she fell asleep, around 0200. As of now, she continues to sleep. no distress noted.
--- NOTE | 2021-08-31 06:00 | NUR ---
Slept 6.0 hours, total. Continues to sleep. No distress noted.
[2021-08-31] MEDS: PANTOPRAZOLE SODIUM 40 MG TABLET.DR PO SCH (06:30)
[2021-08-31 07:30] VITALS: BP 145/82
[2021-08-31 07:42] LABS: BILIRUBIN,TOTAL 0.4 mg/dL (0.2-1.0); CREATININE 0.6 mg/dL (0.6-1.3); POTASSIUM 4.7 mmol/L (3.5-5.1)
[2021-08-31 07:52] LABS: THYROID STIMULATING HORMONE 2.356 mIU/mL (0.358-3.740)
[2021-08-31] MEDS: CEphaleXIN 500 MG CAPSULE PO SCH ×4 (08:53→20:46)
[2021-08-31] MEDS: ASCORBIC ACID 500 MG TABLET PO SCH (08:54)
[2021-08-31] MEDS: MULTIVITAMINS,THERAPEUTIC TABLET PO SCH (08:54)
[2021-08-31] MEDS: METOPROLOL SUCCINATE XL 50 MG TAB.SR.24H PO SCH (08:54)
[2021-08-31] MEDS: DOCUSATE SODIUM 100 MG CAPSULE PO SCH ×2 (08:54→16:16)
[2021-08-31] MEDS: FUROSEMIDE 20 MG TABLET PO SCH (08:54)
[2021-08-31] MEDS ORDERED: RIVASTIGMINE 4.6 MG PATCH TD SCH (09:00)
[2021-08-31] MEDS: CARBIDOPA/LEVODOPA 10-100MG TABLET PO SCH ×3 (09:34→16:18)
[2021-08-31] MEDS: APIXABAN 5 MG TABLET PO SCH ×2 (09:35→16:17)
[2021-08-31] MEDS: CHOLECALCIFEROL 400 UNITS TABLET PO SCH (09:35)
[2021-08-31] MEDS: LISINOPRIL 5 MG TABLET PO SCH (09:36)
--- NOTE | 2021-08-31 10:30 | NUR ---
Firearms Report: Gas Pump Attendant completed and submitted a [employer] firearms report for 5150 grave disability certifications. A copy of report has been placed in patient chart.
--- NOTE | 2021-08-31 10:45 | NUR ---
VAUGHN Initial Discharge Plan: Pt currently resides at [place] [id number] ([phone]). Spoke with Yudith at the facility who stated they would accept the pt back.VAUGHN called pt's brother, Cristian ([phone]) and left a voicemail requesting a call back. VAUGHN continue to work with pt, family, and MD to form a safe and proper discharge.
--- NOTE | 2021-08-31 10:46 | NUR ---
VAUGHN Family Contact: SW called pt's brother, Cristian ([phone]) and left a voicemail requesting a call back to discuss treatment and discharge plan.
[2021-08-31 16:00] VITALS: BP 103/55
[2021-08-31] MEDS: ATORVASTATIN 10 MG TABLET PO SCH (17:09)
[2021-08-31 20:17] VITALS: BP 93/43
[2021-08-31] MEDS: MIRTAZAPINE 15 MG TABLET PO SCH (20:47)
[2021-08-31] MEDS: RIVASTIGMINE TARTRATE 1.5 MG CAPSULE PO SCH (20:47)
[2021-08-31 21:39] VITALS: BP 101/59
[2021-08-31] MEDS: LORAZEPAM 0.5 MG TABLET PO PRN (23:21)
--- NOTE | 2021-09-01 02:07 | NUR ---
Received to care, up in gilbert chair at nurses station for safety, anxious, but pleasant upon approach. compliant with medications, and staff direction. She was coloring pictures, most of evening. PRN restoril was given at 2218 for insomnia. It was ineffective, and ativan was given at 2321. She refused to be put to bed, but was assisted to bed and toileted, at around 0030. she was asleep by 0100, and continues to sleep intermittently. no distress, noted. will continue to monitor closely.
[2021-09-01] MEDS: PANTOPRAZOLE SODIUM 40 MG TABLET.DR PO SCH (06:57)
[2021-09-01 07:30] VITALS: BP 99/49
[2021-09-01] MEDS: MULTIVITAMINS,THERAPEUTIC TABLET PO SCH (09:00)
[2021-09-01] MEDS: METOPROLOL SUCCINATE XL 50 MG TAB.SR.24H PO SCH (09:00)
[2021-09-01] MEDS: LISINOPRIL 5 MG TABLET PO SCH (09:00)
[2021-09-01] MEDS: CEphaleXIN 500 MG CAPSULE PO SCH ×4 (10:26→20:21)
[2021-09-01] MEDS: ASCORBIC ACID 500 MG TABLET PO SCH (10:26)
[2021-09-01] MEDS: FUROSEMIDE 20 MG TABLET PO SCH (10:27)
[2021-09-01] MEDS: CARBIDOPA/LEVODOPA 10-100MG TABLET PO SCH ×3 (10:27→17:46)
[2021-09-01] MEDS: HALOPERIDOL 0.5 MG TABLET PO SCH ×3 (10:27→18:11)
[2021-09-01] MEDS: CHOLECALCIFEROL 400 UNITS TABLET PO SCH (10:27)
[2021-09-01] MEDS: DOCUSATE SODIUM 100 MG CAPSULE PO SCH ×2 (10:27→17:59)
[2021-09-01] MEDS: APIXABAN 5 MG TABLET PO SCH ×2 (13:01→17:49)
[2021-09-01] MEDS: RIVASTIGMINE TARTRATE 1.5 MG CAPSULE PO SCH ×2 (13:10→21:31)
[2021-09-01 17:08] VITALS: BP 100/55
[2021-09-01] MEDS: ATORVASTATIN 10 MG TABLET PO SCH (17:59)
[2021-09-01 20:00] VITALS: BP 104/57
[2021-09-01] MEDS: LORAZEPAM 0.5 MG TABLET PO PRN (20:20)
[2021-09-01 21:28] VITALS: BP 126/63
[2021-09-01] MEDS: MIRTAZAPINE 15 MG TABLET PO SCH (21:31)
[2021-09-01] MEDS: TEMAZEPAM 7.5 MG CAPSULE PO PRN (22:48)
--- NOTE | 2021-09-02 00:57 | NUR ---
Received to care, up in gilbert chair, anxious, but pleasant upon approach. compliant with medications, and staff direction. She was coloring pictures, most of evening. PRN ativan was given at 2019 for anxiety. It was ineffective, and restoril was given at 2247. She was showered and toileted, and was assisted to bed and toileted, at around 2330. she was asleep by 0000, and continues to sleep intermittently. no distress, noted. will continue to monitor closely.
--- NOTE | 2021-09-02 06:32 | NUR ---
Slept 6.25 hours, total. assisted up in gilbert chair, for safety. No distress noted.
[2021-09-02] MEDS: PANTOPRAZOLE SODIUM 40 MG TABLET.DR PO SCH (06:34)
[2021-09-02 08:17] VITALS: BP 116/72
[2021-09-02] MEDS: FUROSEMIDE 20 MG TABLET PO SCH (08:26)
[2021-09-02] MEDS: ASCORBIC ACID 500 MG TABLET PO SCH (08:26)
[2021-09-02] MEDS: CEphaleXIN 500 MG CAPSULE PO SCH ×4 (08:26→20:17)
[2021-09-02] MEDS: DOCUSATE SODIUM 100 MG CAPSULE PO SCH ×2 (08:26→16:48)
[2021-09-02] MEDS: METOPROLOL SUCCINATE XL 50 MG TAB.SR.24H PO SCH (08:27)
[2021-09-02] MEDS: CHOLECALCIFEROL 1,000 UNIT TABLET PO SCH (08:27)
[2021-09-02] MEDS: HALOPERIDOL 0.5 MG TABLET PO SCH ×3 (08:27→16:48)
[2021-09-02] MEDS: RIVASTIGMINE TARTRATE 1.5 MG CAPSULE PO SCH ×2 (08:27→20:16)
[2021-09-02] MEDS: MULTIVITAMINS,THERAPEUTIC TABLET PO SCH (08:27)
[2021-09-02] MEDS: LISINOPRIL 5 MG TABLET PO SCH (08:27)
[2021-09-02] MEDS: APIXABAN 5 MG TABLET PO SCH ×2 (08:31→16:54)
[2021-09-02] MEDS: CARBIDOPA/LEVODOPA 10-100MG TABLET PO SCH ×3 (08:32→16:48)
--- NOTE | 2021-09-02 10:30 | NUR ---
GPS: PT RECEIVED TODAY AT [facility]. DENIES ANY PAIN OR DISCOMFORT. WITH EPISODE OF TALKING TO SELF. BEING NEEDY. CONFUSION NOTED AND ANXIOUSNESS NOTED. REDIRECTED PT. ATE BREAKFAST GOOD. AWAKE AND VERBALLY RESPONSIVE.
[2021-09-02 15:39] VITALS: BP 95/49
[2021-09-02] MEDS: ATORVASTATIN 10 MG TABLET PO SCH (17:01)
[2021-09-02 20:00] VITALS: BP 101/54
[2021-09-02] MEDS: MIRTAZAPINE 15 MG TABLET PO SCH (20:17)
[2021-09-02] MEDS: TEMAZEPAM 7.5 MG CAPSULE PO PRN (23:07)
[2021-09-03] MEDS: LORAZEPAM 0.5 MG TABLET PO PRN ×2 (05:36→15:45)
[2021-09-03] MEDS: PANTOPRAZOLE SODIUM 40 MG TABLET.DR PO SCH (06:17)
[2021-09-03 07:30] VITALS: BP 106/74
[2021-09-03] MEDS: DOCUSATE SODIUM 100 MG CAPSULE PO SCH ×2 (08:06→16:36)
[2021-09-03] MEDS: CARBIDOPA/LEVODOPA 10-100MG TABLET PO SCH ×3 (08:06→16:37)
[2021-09-03] MEDS: HALOPERIDOL 0.5 MG TABLET PO SCH ×3 (08:07→16:36)
[2021-09-03] MEDS: CHOLECALCIFEROL 1,000 UNIT TABLET PO SCH (08:07)
[2021-09-03] MEDS: ASCORBIC ACID 500 MG TABLET PO SCH (08:07)
[2021-09-03] MEDS: FUROSEMIDE 20 MG TABLET PO SCH (08:07)
[2021-09-03] MEDS: MULTIVITAMINS,THERAPEUTIC TABLET PO SCH (08:07)
[2021-09-03] MEDS: RIVASTIGMINE TARTRATE 1.5 MG CAPSULE PO SCH ×2 (08:07→20:28)
[2021-09-03] MEDS: APIXABAN 5 MG TABLET PO SCH ×2 (08:08→16:38)
[2021-09-03] MEDS: LISINOPRIL 5 MG TABLET PO SCH (08:25)
[2021-09-03] MEDS: METOPROLOL SUCCINATE XL 50 MG TAB.SR.24H PO SCH (08:26)
[2021-09-03] MEDS: CEphaleXIN 500 MG CAPSULE PO SCH ×4 (09:19→20:28)
--- NOTE | 2021-09-03 15:49 | NUR ---
GPS: PT ON JULIO- CHAIR AND CURSING EVERYONE. ASKING FOR "PURPLE [place]". PT AGITATED AND BANGING THE TABLE. ATIVAN GIVEN AND TOLERATED WELL. WILL MONITOR PT.
[2021-09-03] MEDS ORDERED: LORAZEPAM 2 MG/1 ML VIAL IM ONE (16:00)
[2021-09-03] MEDS ORDERED: HALOPERIDOL LACTATE 5 MG/1 ML VIAL IM ONE (16:00)
--- NOTE | 2021-09-03 16:13 | NUR ---
GPS: PT ON JULIO- CHAIR STILL CONTINUOUSLY BANGING THE TABLE AND CURSING EVERYONE, ALONG THE HALLWAY. PT VERY AGITATED, UNCONTROLLABLE AND CANNOT BE REDIRECTED. PT ACTING OUT VERY MUCH ASKING FOR PAPER, PICTURES AND ALL SORTS OF STUFFS. CALLED DR CUMMINGS AND ORDERED IM INJ OF HALDOL 0.2ML AND ATIVAN 0.5ML ADMINISTERED ON RIGHT DELTOID. WILL MONITOR PT.
[2021-09-03] MEDS: ATORVASTATIN 10 MG TABLET PO SCH (17:06)
[2021-09-03 20:00] VITALS: BP 109/56
[2021-09-03] MEDS: MIRTAZAPINE 15 MG TABLET PO SCH (20:28)
[2021-09-04] MEDS: PANTOPRAZOLE SODIUM 40 MG TABLET.DR PO SCH (06:17)
[2021-09-04 08:12] LABS: HEMATOCRIT 34.2 % (31.2-41.9); MEAN CORPUSCULAR HEMOGLOBIN 31.4 uug (24.7-32.8); MEAN CORPUSCULAR VOLUME 94.7 fL (75.5-95.3); PLATELET COUNT (AUTO) 269 K/uL (179-408)
[2021-09-04] MEDS: MULTIVITAMINS,THERAPEUTIC TABLET PO SCH (08:19)
[2021-09-04] MEDS: FUROSEMIDE 20 MG TABLET PO SCH (08:19)
[2021-09-04] MEDS: CARBIDOPA/LEVODOPA 10-100MG TABLET PO SCH ×3 (08:19→16:50)
[2021-09-04] MEDS: APIXABAN 5 MG TABLET PO SCH ×2 (08:19→16:48)
[2021-09-04] MEDS: CEphaleXIN 500 MG CAPSULE PO SCH ×2 (08:19→12:28)
[2021-09-04] MEDS: RIVASTIGMINE TARTRATE 1.5 MG CAPSULE PO SCH ×2 (08:20→20:13)
[2021-09-04] MEDS: CHOLECALCIFEROL 1,000 UNIT TABLET PO SCH (08:20)
[2021-09-04] MEDS: ASCORBIC ACID 500 MG TABLET PO SCH (08:20)
[2021-09-04] MEDS: METOPROLOL SUCCINATE XL 50 MG TAB.SR.24H PO SCH (08:20)
[2021-09-04] MEDS: HALOPERIDOL 0.5 MG TABLET PO SCH ×3 (08:20→16:50)
[2021-09-04] MEDS: LISINOPRIL 5 MG TABLET PO SCH (08:22)
[2021-09-04] MEDS: DOCUSATE SODIUM 100 MG CAPSULE PO SCH ×2 (08:25→16:51)
[2021-09-04 08:37] VITALS: BP 95/57
[2021-09-04 08:37] LABS: CREATININE 0.6 mg/dL (0.6-1.3); PHOSPHOROUS 4.1 mg/dL (2.5-4.9)
[2021-09-04 15:39] VITALS: BP 112/58
[2021-09-04] MEDS: ATORVASTATIN 10 MG TABLET PO SCH (16:51)
[2021-09-04 20:03] VITALS: BP 127/76
[2021-09-04] MEDS: MIRTAZAPINE 15 MG TABLET PO SCH (20:13)
--- NOTE | 2021-09-04 20:15 | NUR ---
Received patient in the hallway, hyperverbal, poor insight and poor judgement. Patient can be heard screaming, easily irritable, and med compliant. Patient will remain in a psych facility for further evaluation and treatment.
[2021-09-04] MEDS: TEMAZEPAM 7.5 MG CAPSULE PO PRN (22:06)
[2021-09-05] MEDS: PANTOPRAZOLE SODIUM 40 MG TABLET.DR PO SCH (06:54)
[2021-09-05 07:30] VITALS: BP 114/59
[2021-09-05] MEDS: DOCUSATE SODIUM 100 MG CAPSULE PO SCH ×2 (08:58→16:52)
[2021-09-05] MEDS: CARBIDOPA/LEVODOPA 10-100MG TABLET PO SCH ×3 (08:58→16:51)
[2021-09-05] MEDS: ASCORBIC ACID 500 MG TABLET PO SCH (08:59)
[2021-09-05] MEDS: LISINOPRIL 5 MG TABLET PO SCH (09:00)
[2021-09-05] MEDS: CHOLECALCIFEROL 1,000 UNIT TABLET PO SCH (09:02)
[2021-09-05] MEDS: HALOPERIDOL 0.5 MG TABLET PO SCH ×3 (09:02→16:51)
[2021-09-05] MEDS: FUROSEMIDE 20 MG TABLET PO SCH (09:02)
[2021-09-05] MEDS: METOPROLOL SUCCINATE XL 50 MG TAB.SR.24H PO SCH (09:03)
[2021-09-05] MEDS: APIXABAN 5 MG TABLET PO SCH ×2 (09:05→16:52)
[2021-09-05] MEDS: MULTIVITAMINS,THERAPEUTIC TABLET PO SCH (09:09)
[2021-09-05] MEDS: ENSURE ENLIVE (VAN) 240 ML LIQUID PO SCH (09:10)
[2021-09-05] MEDS: RIVASTIGMINE TARTRATE 1.5 MG CAPSULE PO SCH ×2 (09:10→20:17)
--- NOTE | 2021-09-05 10:19 | NUR ---
VAUGHN PC Hearing: Patient had 5250 probable cause hearing today and it was upheld for grave disability.
[2021-09-05 15:08] VITALS: BP 101/53
[2021-09-05] MEDS: ATORVASTATIN 10 MG TABLET PO SCH (17:43)
--- NOTE | 2021-09-05 17:52 | NUR ---
patient is alert to name only, requires orientation to time, place, date, and situation. patient is confused, disoriented, and easily becomes angry and irritable with staff. patient is redirectable. patient is compliant with medication, no adverse reaction noted. patient denies suicidal and homicidal ideation. she at times is noted to be speaking to unseen others. patient requires assistance with ambulation, ADL's, and requires assistance with meal set up. patient is encouraged to communicate needs to staff appropriately. patient's bed is in low and locked position with bed alarm on. patient's safety maintained.
[2021-09-05 20:05] VITALS: BP 101/54
[2021-09-05] MEDS: MIRTAZAPINE 15 MG TABLET PO SCH (20:17)
[2021-09-06] MEDS: Z GUARD REMEDY PASTE 57 GM TUBE TOP PRN ×2 (00:28→06:33)
[2021-09-06] MEDS: PANTOPRAZOLE SODIUM 40 MG TABLET.DR PO SCH (06:33)
[2021-09-06 07:30] VITALS: BP 123/66
[2021-09-06] MEDS: CHOLECALCIFEROL 1,000 UNIT TABLET PO SCH (08:24)
[2021-09-06] MEDS: METOPROLOL SUCCINATE XL 50 MG TAB.SR.24H PO SCH (08:25)
[2021-09-06] MEDS: DOCUSATE SODIUM 100 MG CAPSULE PO SCH ×2 (08:25→17:05)
[2021-09-06] MEDS: MULTIVITAMINS,THERAPEUTIC TABLET PO SCH (08:25)
[2021-09-06] MEDS: ASCORBIC ACID 500 MG TABLET PO SCH (08:25)
[2021-09-06] MEDS: RIVASTIGMINE TARTRATE 1.5 MG CAPSULE PO SCH ×2 (08:25→20:08)
[2021-09-06] MEDS: CARBIDOPA/LEVODOPA 10-100MG TABLET PO SCH ×3 (08:25→17:05)
[2021-09-06] MEDS: APIXABAN 5 MG TABLET PO SCH ×2 (08:26→17:05)
[2021-09-06] MEDS: FUROSEMIDE 20 MG TABLET PO SCH (08:26)
[2021-09-06] MEDS: ENSURE ENLIVE (VAN) 240 ML LIQUID PO SCH (08:27)
[2021-09-06] MEDS: LISINOPRIL 5 MG TABLET PO SCH (08:27)
[2021-09-06] MEDS: HALOPERIDOL 0.5 MG TABLET PO SCH ×4 (09:00→20:07)
--- NOTE | 2021-09-06 15:33 | NUR ---
patient up to gilbert-chair requested all total care to all ADLS, patient is alert and oriented x1-2 ,able to verbalizer needs known.denies any SI/HI,complaint with all medication.assisted to restroom ,no agitated or aggressive noted.will continue close monitoring.
[2021-09-06 16:00] VITALS: BP 137/68
[2021-09-06] MEDS: ATORVASTATIN 10 MG TABLET PO SCH (17:05)
[2021-09-06 18:51] LABS: *BILIRUBIN,URIN NEGATIVE (NEGATIVE); *BLOOD, URINE NEGATIVE (NEGATIVE); *CLARITY,URINE CLEAR (CLEAR); *COLOR,URINE YELLOW (YELLOW); *KETONES,URINE NEGATIVE (NEGATIVE); *UROBILINOGEN,URINE 0.2 E.U./dl (NORMAL); LEUKOCYTE ESTERASE ,URINE NEGATIVE (NEGATIVE); NITRITE, URINE NEGATIVE (NEGATIVE); UGLUCOSE NEGATIVE (NEGATIVE)
[2021-09-06 19:55] VITALS: BP 115/60
[2021-09-06] MEDS: MIRTAZAPINE 15 MG TABLET PO SCH (20:08)
[2021-09-06] MEDS: LORAZEPAM 0.5 MG TABLET PO PRN (23:59)
[2021-09-07] MEDS: PANTOPRAZOLE SODIUM 40 MG TABLET.DR PO SCH (06:41)
[2021-09-07 07:30] VITALS: BP 99/49
[2021-09-07] MEDS: LISINOPRIL 5 MG TABLET PO SCH (08:53)
[2021-09-07] MEDS: RIVASTIGMINE TARTRATE 1.5 MG CAPSULE PO SCH ×2 (08:53→20:50)
[2021-09-07] MEDS: HALOPERIDOL 0.5 MG TABLET PO SCH ×4 (08:54→20:50)
[2021-09-07] MEDS: CHOLECALCIFEROL 1,000 UNIT TABLET PO SCH (08:54)
[2021-09-07] MEDS: DOCUSATE SODIUM 100 MG CAPSULE PO SCH ×2 (08:54→17:42)
[2021-09-07] MEDS: CARBIDOPA/LEVODOPA 10-100MG TABLET PO SCH ×3 (08:54→17:41)
[2021-09-07] MEDS: ASCORBIC ACID 500 MG TABLET PO SCH (08:55)
[2021-09-07] MEDS: METOPROLOL SUCCINATE XL 50 MG TAB.SR.24H PO SCH (08:55)
[2021-09-07] MEDS: MULTIVITAMINS,THERAPEUTIC TABLET PO SCH (08:55)
[2021-09-07] MEDS: FUROSEMIDE 20 MG TABLET PO SCH (08:56)
[2021-09-07] MEDS: ENSURE ENLIVE (VAN) 240 ML LIQUID PO SCH (08:57)
[2021-09-07] MEDS: APIXABAN 5 MG TABLET PO SCH ×2 (08:59→17:41)
--- NOTE | 2021-09-07 14:17 | NUR ---
Gps/Hand Zipper Trimmer- Stayed in bed most of the morning, compliant with am routine meds, feeding self ind., speech clear, but confused and incoherent, safety reviewed.
[2021-09-07 16:23] VITALS: BP 101/57
[2021-09-07] MEDS: ATORVASTATIN 10 MG TABLET PO SCH (17:41)
[2021-09-07 20:02] VITALS: BP 100/51
[2021-09-07] MEDS: MIRTAZAPINE 15 MG TABLET PO SCH (20:50)
[2021-09-08 07:30] VITALS: BP 127/61
[2021-09-08] MEDS: PANTOPRAZOLE SODIUM 40 MG TABLET.DR PO SCH (08:32)
[2021-09-08] MEDS: RIVASTIGMINE TARTRATE 1.5 MG CAPSULE PO SCH ×2 (08:32→20:11)
[2021-09-08] MEDS: HALOPERIDOL 0.5 MG TABLET PO SCH ×4 (08:32→20:11)
[2021-09-08] MEDS: MULTIVITAMINS,THERAPEUTIC TABLET PO SCH (08:32)
[2021-09-08] MEDS: CHOLECALCIFEROL 1,000 UNIT TABLET PO SCH (08:32)
[2021-09-08] MEDS: CARBIDOPA/LEVODOPA 10-100MG TABLET PO SCH ×3 (08:32→16:52)
[2021-09-08] MEDS: METOPROLOL SUCCINATE XL 50 MG TAB.SR.24H PO SCH (08:33)
[2021-09-08] MEDS: DOCUSATE SODIUM 100 MG CAPSULE PO SCH ×2 (08:33→16:56)
[2021-09-08] MEDS: FUROSEMIDE 20 MG TABLET PO SCH (08:34)
[2021-09-08] MEDS: ASCORBIC ACID 500 MG TABLET PO SCH (08:34)
[2021-09-08] MEDS: ENSURE ENLIVE (VAN) 240 ML LIQUID PO SCH (08:37)
[2021-09-08] MEDS: APIXABAN 5 MG TABLET PO SCH ×2 (08:38→16:52)
[2021-09-08] MEDS: LISINOPRIL 5 MG TABLET PO SCH (08:39)
--- NOTE | 2021-09-08 15:30 | NUR ---
Gps/Process Owner-Kept calling out for her simple needs, toileted, had been contienent of urine and stools this pm, needing assist with simple hygiene. Compliant with routine meds. feeding self ind. after set up. Stayed up in her chair most of the day, attended her group therapy
[2021-09-08 16:51] VITALS: BP 103/58
[2021-09-08] MEDS: ATORVASTATIN 10 MG TABLET PO SCH (16:51)
[2021-09-08 20:00] VITALS: BP 119/69
[2021-09-08] MEDS: MIRTAZAPINE 15 MG TABLET PO SCH (20:12)
[2021-09-09] MEDS: LORAZEPAM 0.5 MG TABLET PO PRN ×2 (02:44→16:20)
[2021-09-09] MEDS: Z GUARD REMEDY PASTE 57 GM TUBE TOP PRN (02:48)
--- NOTE | 2021-09-09 02:48 | NUR ---
GPS: Pt.is awake,anxious and calls out at times for no reason. Re-assured and re-directed prn. Assisted to the bathroom prn. Fall precautions observed. Will continue to monitor.
--- NOTE | 2021-09-09 05:47 | NUR ---
GPS: Pt.slept 7 hrs.last night. Fall precautions observed. Re-directed prn. Will continue to monitor.
[2021-09-09] MEDS: PANTOPRAZOLE SODIUM 40 MG TABLET.DR PO SCH (06:12)
[2021-09-09 07:47] VITALS: BP 113/65
[2021-09-09] MEDS: DOCUSATE SODIUM 100 MG CAPSULE PO SCH ×2 (08:18→16:20)
[2021-09-09] MEDS: CHOLECALCIFEROL 1,000 UNIT TABLET PO SCH (08:20)
[2021-09-09] MEDS: APIXABAN 5 MG TABLET PO SCH ×2 (08:20→16:24)
[2021-09-09] MEDS: CARBIDOPA/LEVODOPA 10-100MG TABLET PO SCH ×3 (08:20→16:20)
[2021-09-09] MEDS: RIVASTIGMINE TARTRATE 1.5 MG CAPSULE PO SCH ×2 (08:20→21:00)
[2021-09-09] MEDS: MULTIVITAMINS,THERAPEUTIC TABLET PO SCH (08:20)
[2021-09-09] MEDS: HALOPERIDOL 0.5 MG TABLET PO SCH ×4 (08:21→21:00)
[2021-09-09] MEDS: FUROSEMIDE 20 MG TABLET PO SCH (08:21)
[2021-09-09] MEDS: METOPROLOL SUCCINATE XL 50 MG TAB.SR.24H PO SCH (08:21)
[2021-09-09] MEDS: LISINOPRIL 5 MG TABLET PO SCH (08:21)
[2021-09-09] MEDS: ASCORBIC ACID 500 MG TABLET PO SCH (08:21)
[2021-09-09] MEDS: ENSURE ENLIVE (VAN) 240 ML LIQUID PO SCH (08:22)
--- NOTE | 2021-09-09 14:20 | NUR ---
GPS: Nursing Notes: Thought Disorder: Patient is awake and responding to her name, cooperative with nursing care, compliant with her medications, assisted with ADL's, sundown behavior, episodes of shouting, demanding, redirected and reoriented during shift, disoriented, A/Ox1-2, unable to formulate a viable plan for self care, impaired judgment, needs prompting to participate in therapeutic groups, gets easily irritable when redirected at times, continue to monitor for safety, continue with treatment plan.
[2021-09-09 16:15] VITALS: BP 109/54
[2021-09-09] MEDS: ATORVASTATIN 10 MG TABLET PO SCH (17:36)
[2021-09-09 20:00] VITALS: BP 104/54
[2021-09-09] MEDS: MIRTAZAPINE 15 MG TABLET PO SCH (21:00)
[2021-09-10] MEDS: PANTOPRAZOLE SODIUM 40 MG TABLET.DR PO SCH (06:18)
[2021-09-10 07:30] VITALS: BP 112/62
[2021-09-10] MEDS: MULTIVITAMINS,THERAPEUTIC TABLET PO SCH (08:20)
[2021-09-10] MEDS: FUROSEMIDE 20 MG TABLET PO SCH (08:20)
[2021-09-10] MEDS: DOCUSATE SODIUM 100 MG CAPSULE PO SCH ×2 (08:20→16:29)
[2021-09-10] MEDS: ASCORBIC ACID 500 MG TABLET PO SCH (08:20)
[2021-09-10] MEDS: CARBIDOPA/LEVODOPA 10-100MG TABLET PO SCH ×3 (08:20→16:29)
[2021-09-10] MEDS: CHOLECALCIFEROL 1,000 UNIT TABLET PO SCH (08:20)
[2021-09-10] MEDS: HALOPERIDOL 0.5 MG TABLET PO SCH ×4 (08:20→20:33)
[2021-09-10] MEDS: RIVASTIGMINE TARTRATE 1.5 MG CAPSULE PO SCH ×2 (08:20→20:33)
[2021-09-10] MEDS: ENSURE ENLIVE (VAN) 240 ML LIQUID PO SCH (08:21)
[2021-09-10] MEDS: APIXABAN 5 MG TABLET PO SCH ×2 (08:21→16:30)
[2021-09-10] MEDS: LISINOPRIL 5 MG TABLET PO SCH (08:24)
[2021-09-10] MEDS: METOPROLOL SUCCINATE XL 50 MG TAB.SR.24H PO SCH (08:24)
[2021-09-10] MEDS: ACETAMINOPHEN 325 MG TABLET PO PRN (12:47)
[2021-09-10 15:13] VITALS: BP 103/54
--- NOTE | 2021-09-10 17:12 | NUR ---
GPS: Nursing Notes: Thought Disorder: Patient is awake and responding to her name, poor anger management, impaired judgment, episodes of shouting when her demands are not met immediately, A/Ox1-2, unkempt appearance, episode of disrobing in the hallway, stated "I do not like the blouse... Give me another one...", redirected and reoriented during shift, refusing to shower, unable to formulate a viable plan for self care, continue to monitor for safety, continue with treatment plan.
[2021-09-10] MEDS: ATORVASTATIN 10 MG TABLET PO SCH (18:16)
[2021-09-10 20:00] VITALS: BP 106/60
[2021-09-10] MEDS: MIRTAZAPINE 15 MG TABLET PO SCH (20:33)
[2021-09-10] MEDS: TEMAZEPAM 7.5 MG CAPSULE PO PRN (22:20)
[2021-09-11] MEDS: PANTOPRAZOLE SODIUM 40 MG TABLET.DR PO SCH ×2 (07:00→08:19)
[2021-09-11 07:57] VITALS: BP 102/53
[2021-09-11] MEDS: ASCORBIC ACID 500 MG TABLET PO SCH (08:18)
[2021-09-11] MEDS: MULTIVITAMINS,THERAPEUTIC TABLET PO SCH (08:18)
[2021-09-11] MEDS: CARBIDOPA/LEVODOPA 10-100MG TABLET PO SCH ×3 (08:18→16:26)
[2021-09-11] MEDS: HALOPERIDOL 0.5 MG TABLET PO SCH ×4 (08:18→20:20)
[2021-09-11] MEDS: RIVASTIGMINE TARTRATE 1.5 MG CAPSULE PO SCH ×2 (08:18→20:20)
[2021-09-11] MEDS: DOCUSATE SODIUM 100 MG CAPSULE PO SCH ×2 (08:18→16:26)
[2021-09-11] MEDS: FUROSEMIDE 20 MG TABLET PO SCH (08:18)
[2021-09-11] MEDS: CHOLECALCIFEROL 1,000 UNIT TABLET PO SCH (08:18)
[2021-09-11] MEDS: ENSURE ENLIVE (VAN) 240 ML LIQUID PO SCH (08:19)
[2021-09-11] MEDS: LISINOPRIL 5 MG TABLET PO SCH (08:21)
[2021-09-11] MEDS: APIXABAN 5 MG TABLET PO SCH ×2 (08:21→16:27)
[2021-09-11] MEDS: METOPROLOL SUCCINATE XL 50 MG TAB.SR.24H PO SCH (08:22)
[2021-09-11] MEDS: ACETAMINOPHEN 325 MG TABLET PO PRN (12:33)
--- NOTE | 2021-09-11 14:30 | NUR ---
GPS: Nursing Notes: Thought Disorder: Patient is awake and responding to her name, disoriented, impaired judgment, resistant with nursing care, overly disruptive at times by shouting, needy behavior, unkempt appearance, assisted with ADL's, minimal participation in therapeutic groups, unable to formulate a viable plan for self care, A/Ox1-2, continue to monitor for safety, on fall precautions, continue with treatment plan.
[2021-09-11 15:56] VITALS: BP 97/59
[2021-09-11] MEDS: ATORVASTATIN 10 MG TABLET PO SCH (17:56)
[2021-09-11 20:13] VITALS: BP 132/66
[2021-09-11] MEDS: MIRTAZAPINE 15 MG TABLET PO SCH (20:20)
[2021-09-11] MEDS: TEMAZEPAM 7.5 MG CAPSULE PO PRN (22:19)
[2021-09-12] MEDS: Z GUARD REMEDY PASTE 57 GM TUBE TOP PRN ×2 (01:08→06:26)
[2021-09-12] MEDS: PANTOPRAZOLE SODIUM 40 MG TABLET.DR PO SCH (06:02)
[2021-09-12 07:30] VITALS: BP 125/71
[2021-09-12] MEDS: MULTIVITAMINS,THERAPEUTIC TABLET PO SCH (08:23)
[2021-09-12] MEDS: DOCUSATE SODIUM 100 MG CAPSULE PO SCH ×2 (08:23→18:15)
[2021-09-12] MEDS: HALOPERIDOL 0.5 MG TABLET PO SCH ×4 (08:23→20:01)
[2021-09-12] MEDS: CARBIDOPA/LEVODOPA 10-100MG TABLET PO SCH ×3 (08:23→18:15)
[2021-09-12] MEDS: RIVASTIGMINE TARTRATE 1.5 MG CAPSULE PO SCH ×2 (08:23→20:01)
[2021-09-12] MEDS: CHOLECALCIFEROL 1,000 UNIT TABLET PO SCH (08:23)
[2021-09-12] MEDS: FUROSEMIDE 20 MG TABLET PO SCH (08:23)
[2021-09-12] MEDS: ASCORBIC ACID 500 MG TABLET PO SCH (08:23)
[2021-09-12] MEDS: ENSURE ENLIVE (VAN) 240 ML LIQUID PO SCH (08:24)
[2021-09-12] MEDS: APIXABAN 5 MG TABLET PO SCH ×2 (08:25→18:17)
[2021-09-12] MEDS: ACETAMINOPHEN 325 MG TABLET PO PRN (12:44)
--- NOTE | 2021-09-12 13:55 | NUR ---
GPS: Nursing Notes: Thought Disorder: Patient is awake and responding to her name, gets easily irritable when redirected, needy at times, A/Ox1-2, impaired judgment, confused, disorganized, impaired judgment, unkempt appearance, assisted with ADL's, minimal participation in therapeutic groups, unable to formulate a viable plan for self care, continue to monitor for safety, continue with treatment plan.
[2021-09-12 15:09] VITALS: BP 112/48
[2021-09-12] MEDS: ATORVASTATIN 10 MG TABLET PO SCH (18:15)
[2021-09-12 19:44] VITALS: BP 127/74
[2021-09-12] MEDS: MIRTAZAPINE 15 MG TABLET PO SCH (20:01)
[2021-09-12] MEDS: TEMAZEPAM 7.5 MG CAPSULE PO PRN (21:58)
[2021-09-13] MEDS: Z GUARD REMEDY PASTE 57 GM TUBE TOP PRN (06:04)
[2021-09-13] MEDS: PANTOPRAZOLE SODIUM 40 MG TABLET.DR PO SCH (06:04)
--- NOTE | 2021-09-13 06:31 | NUR ---
GPS: Pt.slept 5.15 last night. Showered by staff earlier. Less anxious and needy. Cooperative during care. Safe environment provided. Will continue to re-direct and re-assure prn.
[2021-09-13 07:30] VITALS: BP 110/62
[2021-09-13] MEDS: MULTIVITAMINS,THERAPEUTIC TABLET PO SCH (08:23)
[2021-09-13] MEDS: DOCUSATE SODIUM 100 MG CAPSULE PO SCH (08:23)
[2021-09-13] MEDS: RIVASTIGMINE TARTRATE 1.5 MG CAPSULE PO SCH (08:23)
[2021-09-13] MEDS: ASCORBIC ACID 500 MG TABLET PO SCH (08:23)
[2021-09-13] MEDS: CHOLECALCIFEROL 1,000 UNIT TABLET PO SCH (08:23)
[2021-09-13] MEDS: HALOPERIDOL 0.5 MG TABLET PO SCH ×2 (08:23→12:33)
[2021-09-13] MEDS: FUROSEMIDE 20 MG TABLET PO SCH (08:23)
[2021-09-13] MEDS: CARBIDOPA/LEVODOPA 10-100MG TABLET PO SCH ×2 (08:24→12:33)
[2021-09-13] MEDS: ENSURE ENLIVE (VAN) 240 ML LIQUID PO SCH (08:25)
[2021-09-13 08:42] LABS: HEMATOCRIT 35.4 % (31.2-41.9); PLATELET COUNT (AUTO) 251 K/uL (179-408)
[2021-09-13] MEDS: APIXABAN 5 MG TABLET PO SCH (08:46)
--- NOTE | 2021-09-13 09:06 | NUR ---
GPS: RECEIVED PT TODAY AT [facility] FOR SAFETY. PT HAD A GOOD BREAKFAST. PT WILL BE DISCHARGE TODAY TO [facility]. PT COOPERATIVE WITH CARE. COMPLIANT WITH MEDICATIONS. NO AGITATION AT THIS TIME.
[2021-09-13 09:09] LABS: CREATININE 0.7 mg/dL (0.6-1.3); PHOSPHOROUS 4.5 mg/dL (2.5-4.9); POTASSIUM 4.3 mmol/L (3.5-5.1)
--- NOTE | 2021-09-13 09:17 | NUR ---
Discharge Note: Patient will be discharged to [facility] [address] [place] [address]; [phone] via ambulance at 1pm. Spoke with Yudith at the facility who stated they are ready to accept the patient today. Spoke with patient's brother, Cristian Alves ([phone]) who is aware and agreeable with discharge plans. Patient is aware and agreeable with discharge plans. Patient is alert and oriented x3. Pt denies suicidal or homicidal ideation. Patient will follow-up with Dr. Munoz (Psychiatrist) and Dr. Ramirez (Chemical Research Technician) at [facility].
--- NOTE | 2021-09-13 11:10 | NUR ---
GPS: SPOKE WITH JACQUELINE DANGELO ADMITTING NURSE FOR PT AT [facility] . REPORTS GIVEN. THEY ARE EXPECTI NG THE PT TODAY.
--- NOTE | 2021-09-13 13:24 | NUR ---
GPS: PT DISCHARGED FROM THE HOSPITAL. PT REMAINED CALM AND COOPERATIVE WITH CARE AND MEDICATION COMPLIANT. GIVEN [id number] MEDICATIONS AND TOLERATED WELL. HAD LUNCH BEFORE LEAVING VIA AMBULANCE. BELONGINGS GIVEN TO THE PT. PT IS AWARE AND AGREEABLE WITH DC PLAN. DENIES SUICIDAL AND HOMICIDAL IDEATION. PT WILL BE FOLLOW UP BY MD IBARRA (PSYCHIATRIST) AND DR BARRON (IT OPERATIONS ANALYST)
== END 2021-09-13 17:24 | DRG 885 ==
LOC: GPS 18:52
PROVIDERS: ADMIT Psychiatry & Neurology Psychiatry; ATTEND Internal Medicine
DX: F25.9 Schizoaffective disorder, unspecified (principal); E43 Unspecified severe protein-calorie malnutrition; D68.59 Other primary thrombophilia; F02.81 Dementia in other diseases classified elsewhere, unspecified severity, with behavioral disturbance; N39.0 Urinary tract infection, site not specified; Z68.1 Body mass index [BMI] 19.9 or less, adult; I45.2 Bifascicular block; I48.0 Paroxysmal atrial fibrillation; G20 Parkinson's disease; I10 Essential (primary) hypertension; Z20.822 Contact with and (suspected) exposure to COVID-19; F29 Unspecified psychosis not due to a substance or known physiological condition; K21.9 Gastro-esophageal reflux disease without esophagitis; E04.1 Nontoxic single thyroid nodule; Z74.09 Other reduced mobility; I95.9 Hypotension, unspecified; E11.9 Type 2 diabetes mellitus without complications; F32.A Depression, unspecified; T43.4X5A Adverse effect of butyrophenone and thiothixene neuroleptics, initial encounter; Y92.89 Other specified places as the place of occurrence of the external cause
CPT/HCPCS: 36415; 82652; 83735; 84100; 84443; 85025; 87086; 97161; J1630; J2060